=== PATIENT | female | born 1950 | race Caucasian/White ===

== ENCOUNTER → 2017-04-26 | Outpatient (CLI) | payer OTHER, MEDICARE ==
[~2017-04-26] MED LIST: AMITRIPTYLINE H75 M1 PO; ARICEPT 5 MG TAB5 MG PO; BLACK COHOSH200 MG PO; CELEXA20 MG PO; CIPROFLOXACIN500 M3 PO; CLEOCIN HCL150 MG PO; CLIMARA PRO PA1 EACH TRANSDERM; CLONAZEPAM 0.50.5 M1 PO; CYCLOBENZAPRINE10 MG PO; DONEPEZIL HCL 55 M1 PO; ESTRACE1 MG PO; FLAGYL500 MG PO; FLEXERIL PO; GABAPENTIN 100100 MG PO; HYDROCODON-ACE1 EAC7 PO; HYDROCODONE-AP1 EAC6 PO; IBUPROFEN 400400 M1 PO; IBUPROFEN 800800 M1 PO; LIDOCAINE1 EACH TRANSDERM; LIDODERM 5%1 PATCH TOP; LIPITOR 20 MG T20 M1 PO; OMEPRAZOLE 20 M20 MG PO; PRILOSEC 20 MG20 MG PO; TRAMADOL 50 MG50 MG PO; VICODIN 5-5001 EACH PO; VITAMIN B-12500 MCG PO
== END ==
LOC: M.RAD 10:06
DX: M41.85 Other forms of scoliosis, thoracolumbar region (principal); M47.896 Other spondylosis, lumbar region

== ENCOUNTER → 2017-04-26 | Outpatient (CLI) | payer OTHER, MEDICARE ==
--- NOTE | 2017-04-27 09:02 | PAINCON ---
[place] [address] PAIN MANAGEMENT CONSULTATION Name: VERONIKA HARTLEY [id number] Admission: 04/26/17 Attend Phys: Rafael Basurto DO Discharge: Date of : 51 Report #: [id number] THIS REPORT FOR: //name// CC: Chery Basurto DATE OF SERVICE: 04/26/2017 REFERRING PHYSICIAN: Chery Sutherland MD CHIEF COMPLAINT: Neck pain and chronic left back pain. HISTORY OF PRESENT ILLNESS: As you know, the patient is a 67-year-old unfortunate female referred to our service by Dr. Sutherland for evaluation and possible cervical epidural injections. She also complains of chronic low back pain for which she wishes further evaluation. She returns today in followup visit requesting to undergo next in the series of cervical epidural injections reporting pain score 9-1/2/10. She reported near 100% improvement in overall pain with previous cervical epidural injection, which addressed her neck pain, but did not provide much in the way of back coverage. She indicates pain is exacerbated with activities, cold temperature, sitting for long periods of time, prolonged sitting, standing, lifting and bending. She returns today in followup visit for further evaluation of her chronic low back pain and to begin the process of preauthorization for the next in the series of cervical epidural injections for which she received excellent benefit. ALLERGIES: PENICILLIN and NALBUPHINE. CURRENT MEDICATIONS: Amitriptyline 150 mg p.o. daily, atorvastatin 20 mg per day, cyclobenzaprine 10 mg every 8 hours p.r.n., estradiol 1 mg per day, gabapentin 100 mg 3 times a day, ibuprofen 400 mg 3 times a day, omeprazole 20 mg once a day, and tramadol 50 mg twice a day. SOCIAL HISTORY: The patient denies current tobacco use, she quit 3 years ago. Denies IV or illicit drug use. She is retired. She is accompanied by her who again is providing the history. IMAGING: No new imaging available. PHYSICAL EXAMINATION: VITAL SIGNS: Blood pressure 134/74, pulse 81, respiratory rate 16 and unlabored, the patient is 98% on room air, temperature 96.9 degrees Fahrenheit, height 5 feet 7 inches tall, weight 162.2 pounds, and BMI calculated 25.6. GENERAL: Well-developed, well-nourished, well-hydrated, scoliotic, slightly kyphotic 67-year-old female who appears her stated age, [place] [address] PAIN MANAGEMENT CONSULTATION Name: VERONIKA HARTLEY Room: [facility]#: [id number] Admission: 04/26/17 Attend Phys: Rafael Basurto DO Discharge: Date of : 51 Report #: [id number] score today 04/06/09. HEENT: Normocephalic, atraumatic. Pupils are equal, round, and reactive to light. Extraocular muscles are intact. Sclerae are nonicteric without injection. EXTREMITIES: Show no clubbing, no cyanosis, and no edema. MUSCULOSKELETAL: Upper extremity strength is symmetrical 5/5, she is intact to light touch from C5-T1 dermatomes. Cervical provocation testing is once again met with moderate restriction of motion, pain is elicited with maneuvers. Spurling's test is equivocal. She does have palpatory tenderness over the paraspinal musculature of the cervical region as well as the mid thoracic, lower thoracic and upper lumbar area. There is noted scoliotic curvature of the thoracolumbar region. Also, noted kyphosis of the thoracic spine. Lower extremity strength is symmetrical 5/5, intact to light touch from L1 through S2 dermatomes. Muscle bulk and tone equal and symmetrical. ASSESSMENT: 1. Chronic neck pain. 2. Cervical degeneration. 3. Cervical spondylosis. 4. Chronic thoracic and lumbar pain. 5. Scoliosis. 6. Myofascial pain. 7. Chronic intractable pain. PLAN: 1. The patient returns today in followup visit having received excellent benefit with previous cervical epidural injection. She returns today in followup visit with recurrent neck pain and continued back pain. She has requested to undergo the next in a series of cervical epidural injections to address ongoing neck issues. This is the major pain generator the patient is experiencing of late. The patient was advised that third green party payer restrictions require the authorization be obtained before we can undergo the next in the series. The patient did receive excellent benefit lasting for months, I do feel this is an appropriate treatment for the patient. I will begin the authorization process immediately, contact the patient once this authorization has been obtained for her to undergo next in the series of cervical epidural injections. The patient will be contacted by phone once we have the authorization to return to undergo cervical epidural injection under fluoroscopic guidance. The patient and I as well as her had a long discussion about chronic low back pain and thoracic pain. It does appear the patient is suffering from mainly myofascial issues secondary to her scoliosis. I believe imaging would be beneficial to help determine the severity of the scoliosis, so that we can then begin discussion of potential surgical options. We will start the patient off with x-ray imaging of the thoracolumbar area, she [place] [address] PAIN MANAGEMENT CONSULTATION Name: VERONIKA HARTLEY Room: [facility]#: [id number] Admission: 04/26/17 Attend Phys: Rafael Basurto DO Discharge: Date of : 51 Report #: [id number] today, we will review the findings once they are available and discuss whether or not we need to move forward with interventional treatment or recommendations of surgical options. 2. No medication changes were made at today's visit. The patient will continue current medical therapy as previously prescribed. 3. We will see the patient back in followup visit once we have achieved precertification for the patient to undergo the second in series of cervical epidural injections. <ELECTRONICALLY SIGNED> By: Rafael Basurto DO 04/27/17 0902 [id number] [id number] Basurto DO /nt
== END ==
LOC: M.PC 01:18
DX: M47.892 Other spondylosis, cervical region (principal); M50.30 Other cervical disc degeneration, unspecified cervical region; M41.85 Other forms of scoliosis, thoracolumbar region; G89.29 Other chronic pain; M54.6 Pain in thoracic spine; M79.1 Myalgia; Z87.891 Personal history of nicotine dependence

== ENCOUNTER → 2017-05-03 | Outpatient (CLI) | payer OTHER, MEDICARE ==
--- NOTE | 2017-05-05 09:00 | PAINCON ---
[place] [address] PAIN MANAGEMENT CONSULTATION Name: VERONIKA HARTLEY [facility] [id number] Admission: 05/03/17 Attend Phys: Rafael Basurto DO Discharge: Date of : 51 Report #: [id number] THIS REPORT FOR: //name// CC: Chery Basurto DATE OF SERVICE: 05/03/2017 REFERRING PHYSICIAN: Chery Sutherland M.D. CHIEF COMPLAINT: Neck pain, chronic low back pain, left-sided. HISTORY OF PRESENT ILLNESS: As you know, the patient is a 67-year-old unfortunate female referred to our clinic by Dr. Sutherland for evaluation for possible cervical epidural injections. The patient was seen last week for preauthorization for the second series of cervical epidural injections. At that time, we did set the patient for x-ray imaging of the lumbar spine, and she is continuing to experience lumbar symptoms secondary to her severe scoliosis. She returns today with pain level of 7-8/10 to undergo the next in the series of cervical epidural injections and discussed the findings on x-ray imaging. ALLERGIES: PENICILLIN, NALBUPHINE. CURRENT MEDICATIONS: Amitriptyline 150 mg p.o. at bedtime, atorvastatin 20 mg per day, cyclobenzaprine 10 mg every 3 hours, estradiol 1 mg per day, gabapentin 100 mg 3 times a day, ibuprofen 400 mg 3 times a day, omeprazole 20 mg per day, tramadol 50 mg twice a day. SOCIAL HISTORY: The patient denies current tobacco use, she quit 3 years ago. Denies IV or illicit drug use. Denies any chronic alcohol use. She is retired. She is accompanied by her who is providing the majority of history again today. IMAGING: X-ray of the lumbar spine was obtained. Findings show scoliotic curvature and arthritic changes as well as degenerative changes within the thoracolumbar area. No subluxations and no fractures noted. PHYSICAL EXAMINATION: VITAL SIGNS: Blood pressure 144/87, pulse 86, respiratory rate 16, unlabored. The patient is 97% on room air, current temperature 96.7 degrees Fahrenheit. Height 5 feet 8 inches tall, weight 165 pounds, BMI calculated 25. GENERAL: Well-developed, well-nourished, well-hydrated 67-year-old female, appears older than stated age, placing pain score today 7-8/10. HEENT: Normocephalic, atraumatic. Pupils equal, round, reactive to light. EXTREMITIES: Show no clubbing, no cyanosis, [place] [address] PAIN MANAGEMENT CONSULTATION Name: VERONIKA HARTLEY Obi Room: [facility]#: [id number] Admission: 05/03/17 Attend Phys: Rafael Basurto DO Discharge: Date of : 51 Report #: [id number] MUSCULOSKELETAL: Upper extremity strength remains symmetrical 5/5, muscle bulk and tone equal and symmetrical in upper extremities, intact to light touch from C5-T1 dermatomes. Cervical provocation testing is met with moderate restriction of motion secondary to pain. Spurling's test is equivocal. There is palpatory tenderness over the paraspinal musculature of lower lumbar spine and lower thoracic area on the left compared to the right. ASSESSMENT: 1. Cervical radiculopathy. 2. Chronic neck pain. 3. Cervical spondylosis with radicular symptoms. 4. Scoliosis. 5. Degenerative changes of the lumbar spine. 6. Myofascial pain. 7. Chronic intractable pain. PLAN: 1. The patient returns today in followup visit where we have reviewed her x-ray imaging in its entirety. It does appear the patient is suffering from some scoliotic curvature and myofascial symptoms secondary to that curvature. It does not appear the patient has suffered from any subluxations or fractures of the thoracolumbar area. The patient does have some minor radicular component to her symptoms radiating down the left leg, and I recommend the possibility of having the patient undergo an epidural injection in the area to determine if this would be able to improve the patient's ongoing low back symptoms. The patient was advised that third green party payer restrictions require that authorization be obtained. We would have only one injection remaining in this 6 months to address the low back symptoms as today we will complete the second in series of epidural injections, and the patient is only allowed 3 epidural injections total per 6 months. The patient understands and does wish to address her low back and the left lower extremity symptoms. If at all possible, we will begin the prior authorization process, have the patient return in followup visit to undergo this procedure in about 3 weeks. We will attempt the authorization process over the next couple of weeks. 2. The patient has been advised the risks and benefits of a cervical epidural injection. These risks include, but are not necessarily limited to bleeding, bruising, infection, worsening pain, no relief of pain, also risk of temporary or permanent muscle weakness, temporary or permanent nerve damage, possible paralysis and . The patient states understood and wished to proceed. 3. No medication changes were made at today's visit. The patient to continue current medical therapy as previously prescribed. [place] [address] PAIN MANAGEMENT CONSULTATION Name: VERONIKA HARTLEY Room: [facility] [place]#: [id number] Admission: 05/03/17 Attend Phys: Rafael Basurto DO Discharge: Date of : 51 Report #: [id number] 4. We will see the patient back in followup visit on an as-needed basis for the possible lumbar epidural injection addressed above. <ELECTRONICALLY SIGNED> By: Rafael Basurto DO 05/05/1700 0748Rafael Basurto DO /nt
--- NOTE | 2017-05-05 09:00 | PROC ---
[address] [address] PROCEDURE REPORT Name: VERONIKA HARTLEY [id number] Admission: 05/03/17 Attend Phys: Rafael Basurto DO Discharge: Date of : 51 Report #: [id number] THIS REPORT FOR: //name// CC: Chery Basurto DATE OF SERVICE: 05/03/2017 PROCEDURE NOTE DESCRIPTION OF PROCEDURE: C7-T1 cervical epidural steroid injection under fluoroscopic guidance. After obtaining written consent, the patient was taken back to fluoroscopy suite, placed in a prone position with separate pillows under chest and forehead to decrease cervical lordosis. The cervical intervertebral spaces were identified by AP fluoroscopy. Skin and subcutaneous tissue overlying target site of injection was anesthetized with 3 mL of 1% lidocaine. A 20-gauge 3-1/2 inch Tuohy needle advanced under fluoroscopic guidance towards the epidural space using midline approach. Epidural space identified using loss of resistance to air technique. After negative aspiration for heme or cerebrospinal fluid, 1 mL of Omnipaque was injected. A cervical epidurogram was confirmed using both AP and oblique fluoroscopy. After negative aspiration for heme or cerebrospinal fluid, 5 mL of a solution containing 2 mL 40 mg per mL, 80 mg total triamcinolone, 3 mL lidocaine 1% injected slowly. Needle retracted longterm, flushed with 1 mL of 1% lidocaine and removed. Sterile bandage placed over injection site. No new motor deficits present in the upper extremity following procedure. The patient tolerated procedure well, carefully escorted to recovery room in stable condition. No apparent complications. After meeting discharge criteria, the patient discharged home. <ELECTRONICALLY SIGNED> By: Rafael Basurto DO 05/05/1700 0714 0749Rafael Basurto DO /nt
== END | disposition home or self-care (01) ==
LOC: M.PC 00:57
DX: M47.22 Other spondylosis with radiculopathy, cervical region (principal); M79.1 Myalgia; G89.29 Other chronic pain; Z87.891 Personal history of nicotine dependence; Z88.0 Allergy status to penicillin; Z88.8 Allergy status to other drugs, medicaments and biological substances

== ENCOUNTER → 2017-06-15 | Outpatient (CLI) | payer OTHER, MEDICARE ==
--- NOTE | 2017-06-16 14:44 | PAINCON ---
[address] [address] PAIN MANAGEMENT CONSULTATION Name: NAEEMVERONIKA L Room: [facility]#: [id number] Admission: 06/15/17 Attend Phys: Marisa Kraus MD Discharge: Date of : 51 Report #: [id number] THIS REPORT FOR: //name// CC: Chery Kraus DATE OF SERVICE: 06/15/2017 HISTORY OF PRESENT ILLNESS: The patient is a 67-year-old female who has been followed in the pain clinic because of cervical radiculopathy with chronic neck pain as well as some low back pain and discomfort. She has significant scoliosis. She underwent a cervical epidural steroid injection with Dr. Rafael Basurto. This is my first time visiting with the patient. She gleaned benefit from that. She returns today for evaluation of left-sided chest wall/left loin pain. Her states that she has had this pain for about 41 years. She noted improvement in the neck discomfort after the cervical epidural steroid injection. Now, she would like to have the lower back/left loin pain addressed. Again, this pain has been going on for about 40 years. She denies any shingles in this area. Denies any trauma. States that she has significant scoliosis and feels that is a portion of the pain and discomfort that she is having. She has tried a number of medications, which have included tramadol, which has improved the pain. She notes that the pain sometimes become so problematic that she might spend 1-2 days in bed because of this discomfort. She has tried hydrocodone, but did not feel that that was significantly beneficial. She and her have discussed it and they would like to proceed with an epidural steroid injection in the lower back area to notice efficacy and decreasing the left loin pain, which radiates from her back into the lateral portions of her left loin. She states that the pain is persistent and that it is there every day. She rates it as a 5/10 at this juncture. Notes that the pain can be worsened by standing, walking, times of changing temperature, changes in activity, lifting and bending can be problematic. She has tried a TENS unit. ALLERGIES: PENICILLIN. CURRENT MEDICATIONS: Amitriptyline 75 mg, a total of 150 mg daily, Lipitor 20 mg, Flexeril 10 mg q.8 hours p.r.n. spasms, Estrace 1 mg daily, ibuprofen 400 mg t.i.d., omeprazole 20 mg daily, tramadol 50 mg b.i.d., and donepezil 5 mg daily. The patient has used gabapentin 100 mg t.i.d., but no longer is using this medication. She has used a Lidoderm patch in the past. PAST MEDICAL HISTORY: 1. Hiatal hernia. 2. Emotional problems. 3. Scoliosis. 4. Deg[place] [address] PAIN MANAGEMENT CONSULTATION Name: VERONIKA HARTLEY Room: [facility]#: [id number] Admission: 06/15/17 Attend Phys: Marisa Kraus MD Discharge: Date of : 51 Report #: [id number] 5. Osteoarthritis. 6. Hyperlipidemia. 7. GERD. PAST SURGICAL HISTORY: Hysterectomy. SOCIAL HISTORY: She retired 32 years ago. Her provides a lion's share of her medical history. REVIEW OF SYSTEMS: Positive for fatigue, weakness, wears glasses, hearing loss with tenderness, shortness of breath with activities, memory loss with confusion. PAIN ASSESSMENT: Indicates, 1. History of osteoarthritis with significant scoliosis of her back. 2. Height 5 feet 8 inches, weight 167 pounds, BMI is 25. Vital Signs: Blood pressure 169/90, heart rate 83, respiratory rate 16, room air saturation 99%, and temperature 98.3. 3. Pain intensity 5/10. 4. Fall risk. The patient has not fallen. 5. The patient is not on blood thinner. 6. Hypertension. The patient has not been treated for hypertension. 7. Opioid therapy greater than 6 weeks. The patient is using trazodone 50 mg. 8. Risk assessment tool. 9. Pain impact score 42/70 indicating moderate interference with daily activities secondary to pain. 10. Tobacco use. The patient smoked cigarettes about 45 years, stopped 3-1/2 years ago. 11. Alcohol: Denies use of alcoholic beverages, maybe once per month. PHYSICAL EXAMINATION: GENERAL: The patient is a white female. Appearance, appears her stated age. Orientation: The patient is alert and oriented. Affect is somewhat flat. Her does most of the talking and provides most of medical history. HEENT: Normocephalic, atraumatic. Extraocular eye muscles intact. Hearing appears within normal limits. No complaints of sinus problems on today's visit. Affect seems appropriate with her providing most information. NECK: Without adenopathy. The patient has noted some improvement in the cervical pain, now that the patient has undergone 2 epidural steroid injections in her neck. She feels that this is better. LUNGS: Clear to auscultation. HEART: Regular rate. ABDOMEN: Nontender. MUSCULOSKELETAL: The patient has significant scoliosis of the back. The patient has pain and discomfort in the left loin area. Palpation in this area causes pain and discomfort. Muscle strength appears to be 5/5 [place] [address] PAIN MANAGEMENT CONSULTATION Name: VERONIKA HARTLEY [facility] [id number] Admission: 06/15/17 Attend Phys: Marisa Kraus MD Discharge: Date of : 51 Report #: [id number] muscle groups of the lower extremity. She is not complaining of pain and discomfort radiating down into the legs, but does have some pain and discomfort with walking of once fingers over the mid axillary line in the left lateral loin the area. IMPRESSION: 1. Chronic left loin pain. 2. Cervical radiculopathy. 3. Cervical spondylosis. 4. Intermittent cervical radicular symptoms. 5. Chronic intractable pain, left lower side. RECOMMENDATIONS: We discussed treatment options with the patient. The patient and her feel that the cervical epidural steroid injections provided by [facility] were helpful. She continues to have pain and discomfort in the left lower loin area. This is pain which has been problematic for about the last 40 years. She feels that today she would like to undergo an epidural steroid injected and note its efficacy and decrease in the pain and discomfort which she is experiencing in the left lateral loin area. She rates the pain as an 8/10. It increases when she is sitting. She would like to proceed with treatment. We discussed treatment options with the patient and her . Risks and benefits of an epidural steroid injection were again reviewed. They include but are not limited to infection, increased muscle soreness, headaches, bleeding, worsening of pain, spinal headache, improvement in pain conditions or no improvement in pain condition. She elects to proceed. PROCEDURE NOTE: The patient was taken to the fluoroscopy room. She was assisted in moving from the chair to the examination table. A pillow was placed under her abdomen/chest area to bolster and get her in the best position. Fluoroscopy was used in the anterior, posterior mold. At T12-L1, this area was sterilely prepped with Betadine. A 0.25% bupivacaine was infiltrated. A 17-gauge Tuohy with loss of resistance technique was used to gain access to the epidural space. There was no CSF, heme or paresthesia. Total of 80 mg Depo-Medrol, 40 mg triamcinolone and 2 mL of 0.25% bupivacaine was injected. The patient's pain decreased from 8-0-1 at the time of discharge. She remained in the pain clinic for an appropriate amount of time. She will call us if she has any problems or concerns. We would like to thank you for letting us participate in her care. We hope she continues to improve. <ELECTRONICALLY SIGNED> By: Marisa Kraus MD 06/16/17 1444 1515 1915N. Gabe Kraus MD /nt
== END | disposition home or self-care (01) ==
LOC: M.PC 02:45
DX: M47.22 Other spondylosis with radiculopathy, cervical region (principal); G89.29 Other chronic pain; F11.20 Opioid dependence, uncomplicated; I10 Essential (primary) hypertension; M19.90 Unspecified osteoarthritis, unspecified site; R06.02 Shortness of breath; Z90.710 Acquired absence of both cervix and uterus; E78.5 Hyperlipidemia, unspecified; K21.9 Gastro-esophageal reflux disease without esophagitis; M41.9 Scoliosis, unspecified; Z88.0 Allergy status to penicillin; Z79.899 Other long term (current) drug therapy

== ENCOUNTER → 2017-07-13 | Outpatient (CLI) | payer OTHER, MEDICARE ==
--- NOTE | 2017-08-04 08:18 | PAINCON ---
[address] [address] PAIN MANAGEMENT CONSULTATION Name: NAEEMVERONIKA L [facility] [id number] Admission: 07/13/17 Attend Phys: Marisa Kraus MD Discharge: Date of : 51 Report #: [id number] THIS REPORT FOR: //name// CC: Chery Kraus DATE OF SERVICE: 07/13/2017 FOLLOWUP COMPLAINT: The pain was better for about 4 weeks. The patient fell out of bed 5-6 days ago. FOLLOWUP HISTORY: The patient is a 67-year-old female, who has been seen in the pain clinic because of chronic pain. She has significant scoliosis. She underwent a lumbar epidural steroid injection at the last visit. She noted significant improvement. Pain decreased for about the last 4 weeks. The patient recently fell out of bed about 5-6 days ago. She has noted some increased pain and discomfort. She hit her mouth and lip. Possible damage to a tooth was noted. She is going to see a dentist for a followup. Her feels that this past epidural steroid injection was beneficial and helped greater than a number of epidural steroid injections that she has had in the past. She has had an increase activity. She has been able to engage in other activities with less discomfort. Overall, her pain has increased to an 8/10 at this juncture. She notes that the pain can be worsened by prolonged sitting and standing. Walking stairs can be problematic as well. Using TENS unit, stretching and rest in conjunction with heat have been helpful. She and her feels that another epidural steroid injection would be beneficial and they would like to proceed with one in the future. ALLERGIES: PENICILLIN. CURRENT MEDICATIONS: Lipitor 20 mg daily, Flexeril 10 mg at bedtime to help with back spasms, donepezil 5 mg, ibuprofen 400 mg 1 p.o. t.i.d. p.r.n., omeprazole 20 mg daily, Ultram 50 mg p.r.n., citalopram, B12, B2 daily, Aricept one-half tablet daily. Medications which have been stopped, esterase 1 mg, amitriptyline 75 mg. The patient is being weaned off. PAIN ASSESSMENT: 1. History of osteoarthritis with significant scoliosis of her back. 2. Height 5 feet 8 inches, weight 161 pounds, BMI 25.2. 3. VITAL SIGNS: Blood pressure 129/72, heart rate 88, respiratory rate 16, room air saturation 98%, temperature 98. 4. Pain intensity 11/12. 5. Fall risk. The patient fell about 5 days ago out of bed. 6. Blood thinner. The patient is not on a blood thinning medication. 7. Hypertension. The patient has not been [place] [address] PAIN MANAGEMENT CONSULTATION Name: VERONIKA HARTLEY Room: [facility]#: [id number] Admission: 07/13/17 Attend Phys: Marisa Kraus MD Discharge: Date of : 51 Report #: [id number] 8. Oral therapy greater than 6 weeks. The patient is taking tramadol 50 mg b.i.d. p.r.n. 9. Risk assessment tool. 10. Pain impact score 42/70 indicating moderate interference with activities of daily living secondary to pain. 11. Tobacco use. The patient smokes cigarettes about 45 years ago, stopped 3-1/2 years ago. 12. Alcohol. The patient denies use of alcoholic beverages on a regular basis. Rarely monthly. PHYSICAL EXAMINATION: GENERAL: The patient is a well-developed white female. She appears her stated age. She appears to be alert and oriented x 3. Affect is somewhat flat. Her does most of the talking and provides most of the medical history. HEENT: Normocephalic, atraumatic. Extraocular eye muscles intact. Sclerae is nonicteric. Hearing is within normal limits. NECK: Without adenopathy. Good range of motion. The patient has had cervical pain in the past. Not complaining of much discomfort at this juncture. HEART: Regular rate, normal S1, S2. LUNGS: Clear to auscultation without rub, crackles or rhonchi. ABDOMEN: Nontender. MUSCULOSKELETAL: The patient has a significant scoliosis presentation on her back. The patient has pain and discomfort in the left loin area. Palpation in this area does cause some reproduction of discomfort. Muscle strength appears to be 5/5 for the major muscle groups in the lower extremity. She is not complaining of pain in the upper extremities. ASSESSMENT: 1. Chronic left loin pain. 2. History of cervical radiculopathy. 3. Cervical radiculopathy. 4. Intermittent cervical radicular symptoms. 5. Chronic intractable pain in the left lower side secondary to scoliosis. RECOMMENDATIONS: We discussed treatment options with the patient and his . It appears that the epidural steroid injection which she received at the last visit was quite beneficial. Had 3-4 weeks of significant improvement. Noted some worsening of her pain after a fall from the bed. At this juncture, she will return to the pain clinic and will undergo another epidural steroid injection in the thoracic area. Again, the risks and benefits were reviewed with the family. They will return at which time an epidural steroid injection will be again placed at the T12-L1 interspace with a hope of improving the [facility] [address] [place] [address] PAIN MANAGEMENT CONSULTATION Name: HARTLEYVERONIKA L Room: [facility]#: [id number] Admission: 07/13/17 Attend Phys: Marisa Kraus MD Discharge: Date of : 51 Report #: [id number] patient's pain and comfort level. We would like to thank you for letting us participate in her care. We hope she continues to improve. <ELECTRONICALLY SIGNED> By: Marisa Kraus MD 08/04/17 0818 1717 1732N. Gabe Kraus MD /nt
== END ==
LOC: M.PC 03:02
DX: I10 Essential (primary) hypertension (principal); M54.12 Radiculopathy, cervical region; G89.29 Other chronic pain; M47.9 Spondylosis, unspecified; Z91.81 History of falling

== ENCOUNTER 2017-07-17 07:10 | Emergency (ER) | payer OTHER, MEDICARE ==
[~2017-07-17] VITALS: Ht 172.7 cm; Wt 76.2 kg
[~2017-07-17 07:10] MED LIST changes: -CLEOCIN HCL150 MG PO; -HYDROCODONE-AP1 EAC6 PO; -LIDOCAINE1 EACH TRANSDERM
[2017-07-17] MEDS ORDERED: CLEOCIN HCL150 MG PO (07:31)
[2017-07-17] MEDS ORDERED: HYDROCODONE-AP1 EAC6 PO (07:32)
[2017-07-17] MEDS ORDERED: LIDOCAINE1 EACH TRANSDERM (07:32)
[2017-07-17 08:25] LABS: ABSOLUTE BASOPHILS 0.1 thou/uL (0.0-0.2); ABSOLUTE LYMPHOCYTES 1.8 thou/uL (0.8-5.3); ABSOLUTE MONOCYTES 0.5 thou/uL (0.0-1.2); ABSOLUTE NEUTROPHILS 3.6 thou/uL (1.6-8.1); BASOPHILS 1.1 %; EOSINOPHILS 0.6 %; HEMATOCRIT 36.8 % (37.0-47.0); HEMOGLOBIN 12.6 gm/dL (12.0-15.0); LYMPHOCYTES 29.9 %; MCH 33.2 pg (26.0-34.0); MCHC 34.1 g/dL (28.0-37.0); MCV 97.3 fL (80.0-100.0); MONOCYTES 7.7 %; MPV 7.6 fl. (7.2-11.1); NUCLEATED RBCS 0 /100WBC; PLATELET COUNT* 258 thou/uL (150-400); POLYS 60.7 %; RBC 3.78 mil/uL (4.20-5.00)
[2017-07-17 08:32] LABS: CALCIUM 9.1 mg/dL (8.5-10.1); CREATININE 0.8 mg/dL (0.6-1.3); POTASSIUM 3.7 mmol/L (3.5-5.1)
[2017-07-17 08:37] LABS: ALBUMIN 3.3 g/dL (3.4-5.0); TOTAL BILIRUBIN 0.4 mg/dL (<0.1-1.0); TOTAL PROTEIN 6.5 g/dL (6.4-8.2)
[2017-07-17 09:28] LABS: URINE BILIRUBIN NEGATIVE (Negative); URINE BLOOD NEGATIVE (Negative); URINE CLARITY CLEAR; URINE COLOR YELLOW; URINE GLUCOSE-RANDOM NEGATIVE (Negative); URINE KETONES NEGATIVE (Negative); URINE LEUKOCYTES-REFLEX NEGATIVE (Negative); URINE NITRITE-REFLEX NEGATIVE (Negative); URINE PROTEIN NEGATIVE (Negative); URINE SPECIFIC GRAVITY <= 1.005 (1.005-1.030); URINE UROBILINOGEN 0.2 E.U./dl (0.2-1.0)
[2017-07-17 13:05] VITALS: BP 141/84
[2018-01-06] MEDS ORDERED: HYDROCODON-ACE1 EAC7 PO (11:13)
== END 2017-07-17 13:05 | disposition home or self-care (01) ==
LOC: M.ERS 07:10
PROVIDERS: Personal Emergency Response Attendant
DX: R51 Headache (principal); K21.9 Gastro-esophageal reflux disease without esophagitis; F03.90 Unspecified dementia, unspecified severity, without behavioral disturbance, psychotic disturbance, mood disturbance, and anxiety; Z88.0 Allergy status to penicillin; Z88.8 Allergy status to other drugs, medicaments and biological substances; Z77.22 Contact with and (suspected) exposure to environmental tobacco smoke (acute) (chronic); Z90.710 Acquired absence of both cervix and uterus

== ENCOUNTER → 2017-07-29 | Outpatient (CLI) | payer OTHER, MEDICARE ==
[~2017-07-29] MED LIST changes: +CLEOCIN HCL150 MG PO; +HYDROCODONE-AP1 EAC6 PO; +LIDOCAINE1 EACH TRANSDERM
--- NOTE | 2017-08-04 08:18 | PAINCON ---
[address] [address] PAIN MANAGEMENT CONSULTATION Name: NAEEMVERONIKA L [id number] Admission: 07/29/17 Attend Phys: Marisa Kraus MD Discharge: Date of : 51 Report #: [id number] THIS REPORT FOR: //name// CC: Chery Kraus DATE OF SERVICE: 07/29/2017 FOLLOWUP COMPLAINT: Here for another injection before I go to [place]. FOLLOWUP HISTORY: The patient is a 67-year-old female who has been seen in the pain clinic because of chronic pain. She has had some problems with cervical pain as well as pain in the low back area. As you recall, she has significant scoliosis in her mid-thoracic area. She is having pain and discomfort, which is radiating down into the left wall area. States that it feels like there is some spasms involving the left flank area. She underwent an epidural steroid injection in the thoracic area and felt that this had been significantly beneficial. She rates her pain today as a 7/10. Feels that most of the pain involves the left side. The patient is contemplating leaving to go to [place] tomorrow. Denies any bowel or bladder dysfunction since the last injection. Notes that her pain continues to be problematic when standing, walking and changes in the weather and barometric pressure with activity such as lifting and bending makes all still remain problematic. ALLERGIES: PENICILLIN. MEDICATIONS: Amitriptyline 75 mg total of 150 mg per day, Lipitor 20 mg, Flexeril 10 mg q.8h. p.r.n. spasm, Estrace 1 mg daily, ibuprofen 400 mg t.i.d., omeprazole 20 mg daily, tramadol 50 mg b.i.d., donepezil 5 mg daily. Gabapentin 100 mg t.i.d. has been used in the past. The patient is also use Lidoderm patches in the past. PAIN CLINIC ASSESSMENT: 1. History of osteoarthritis. The patient has significant arthritic changes in her thoracic and lumbar spine. 2. Height 5 feet 8 inches, weight 160 pounds, BMI 24. 3. Vital Signs: Blood pressure 132/84, heart rate 81, respiratory rate 16, room air saturation 97%, temperature 97.8. Pain intensity /10. 4. Fall risk. The patient has not fallen in the last 3 months. IMPRESSION: 1. Blood thinner. The patient is not on a blood thinner. 2. Hypertension. The patient has not been treated for hypertension. 3. Opioid therapy greater than 6 weeks. The patient is using trazodone. 4. [place] [address] PAIN MANAGEMENT CONSULTATION Name: VERONIKA HARTLEY Obi Room: [facility]#: [id number] Admission: 07/29/17 Attend Phys: Marisa Kraus MD Discharge: Date of : 51 Report #: [id number] 5. Functional assessment tool. 6. Pain impact score 42/70 indicating moderate interference with activities of daily living. 7. Tobacco use. The patient smokes cigarettes about 45 years ago, stopped 3-1/2 years ago. 8. Alcohol: The patient denies use of alcoholic beverages on a regular basis. PHYSICAL EXAMINATION: GENERAL: The patient is a white female. She appears her stated age. She is alert and oriented. She is speaking to his aunt, and her speech is fluent. HEENT: Normocephalic, atraumatic. Extraocular eye muscles intact. Sclerae nonicteric Hearing is within normal limits. Mucous membranes are moist. NECK: Without adenopathy. The patient has noted some improvement in cervical pain since she has undergone epidural steroid injections. LUNGS: Clear to auscultation. HEART: Regular rate. S1, S2. ABDOMEN: Nontender. MUSCULOSKELETAL: The patient has significant scoliosis in the upper back with leaning toward the right. The patient has pain and discomfort in the left loin area. Palpation in this area causes some reproduction of her discomfort. Muscle strength appears to be 5/5 for the major muscle groups in the lower extremities. She has pain and discomfort radiating down into her legs. Has had improvement after the last thoracic/lumbar epidural steroid injection. IMPRESSION: 1. Chronic left loin pain. 2. Cervical radiculopathy. 3. Lumbar radicular pain with significant scoliosis. 4. Cervical spondylosis. 5. Mid and cervical radicular symptoms. 6. Chronic intractable pain involving her low back area. RECOMMENDATIONS: We discussed treatment options with the patient. She had undergone epidural steroid injection at the last visit. She and her states this has been a significant improvement. There were no complications. She is planning on going to [place]. She would like to undergo an epidural steroid injection today. Risks and benefits of an epidural steroid injection were again reviewed with the patient and reviewed with the patient. They include but are not limited to infection, increased muscle soreness, headache, bleeding, nerve damage, paresis and the patient elects to proceed. PROCEDURE NOTE: The patient was placed in the prone position. Fluoroscopy was used to identify the T12-L1 interspace. This area had been sterilely prepped with Betadine and infiltrated with 0.25% bupivacaine. Total of 80 mg Depo-Medrol, 40 mg triamcinolone and 2 mL of 0.25% bupivacaine was injected. The patient tolerated the procedure well. There [place] [address] PAIN MANAGEMENT CONSULTATION Name: VERONIKA HARTLEY Room: [facility]#: [id number] Admission: 07/29/17 Attend Phys: Marisa Kraus MD Discharge: Date of : 51 Report #: [id number] remained in the pain clinic for an appropriate amount of time. Pain decreased from 7-4 at the time of discharge. She will call us if she has any problems with her medications. We would like to thank you for letting us participate in her care. Hopefully, she has a good time in [place]. <ELECTRONICALLY SIGNED> By: Marisa Kraus MD 08/04/17 0818 1258 195N. Gabe Kraus MD /[facility]
== END | disposition home or self-care (01) ==
LOC: M.PC 01:58
DX: M47.22 Other spondylosis with radiculopathy, cervical region (principal); M41.86 Other forms of scoliosis, lumbar region; G89.29 Other chronic pain; Z88.0 Allergy status to penicillin; Z88.8 Allergy status to other drugs, medicaments and biological substances; Z79.899 Other long term (current) drug therapy; Z79.891 Long term (current) use of opiate analgesic; Z98.890 Other specified postprocedural states

== ENCOUNTER → 2017-11-18 | Outpatient (CLI) | payer OTHER, MEDICARE ==
--- NOTE | 2017-11-19 08:37 | PAINCON ---
[address] [address] PAIN MANAGEMENT CONSULTATION Name: VERONIKA HARTLEY [facility] [place]#: [id number] Admission: 11/18/17 Attend Phys: Marisa Kraus MD Discharge: Date of : 51 Report #: [id number] THIS REPORT FOR: //name// CC: Chery Kraus DATE OF SERVICE: 11/18/2017 FOLLOWUP HISTORY: The patient is a 67-year-old female who has been followed in the pain clinic because of chronic pain associated with arthritis. She has cervical radicular problems as well as lumbar radicular problems. She has undergone an epidural steroid injection in the lumbar area at the last visit. She noted that things went quite well. She has had about 3 months of pain relief. The patient and her often go to [place]. They had a good vacation in this area. She has noted some return of pain and discomfort and rates her pain as a 10/10 at this juncture. Overall, they are quite positive regarding the past results. She did get injections in the past and they were less efficacious. Pain involves her right hip area and radiates around the back. Her states that they went to the Emergency Room, she was seen. Nothing significant was found. At this juncture, she would like to undergo another injection. The patient has gleaned greater than 50% improvement for the last 3 months. She has noted a return of her pain and would like to proceed with another injection. ALLERGIES: PENICILLIN. MEDICATIONS: Amitriptyline 75 mg, total of 150 mg daily; Lipitor 20 mg; Flexeril 10 mg q.8 hours p.r.n. spasms; Estrace 1 mg daily; ibuprofen 400 mg t.i.d.; omeprazole 20 mg daily; tramadol 50 mg b.i.d.; donepezil 5 mg; gabapentin 100 mg t.i.d., has been used in the past. The patient has also used Lidoderm patches in the past. PAIN CLINIC ASSESSMENT: 1. History of osteoarthritis. The patient has significant arthritic problem in her thoracic spine as well as in the cervical area. 2. Height 5 feet 8 inches, weight 151 pounds, BMI is 24. 3. VITAL SIGNS: Blood pressure 151/88, heart rate is 99, respiratory rate 16, room air saturation 98%. The patient's pain level 10/10. 4. Fall. The patient has not fallen in the last 3 months. 5. Blood thinner. The patient is not on a blood thinning medication. 6. History of hypertension. The patient has not been treated for hypertension. 7. Opiate therapy greater than 6 weeks. The patient is using tramadol to help curtail her pain. 8. Hypertension. The patient is being treated for hypertension. 9. [place] [address] PAIN MANAGEMENT CONSULTATION Name: VERONIKA HARTLEY Obi Room: [facility]#: [id number] Admission: 11/18/17 Attend Phys: Marisa Kraus MD Discharge: Date of : 51 Report #: [id number] 10. Functional assessment tool. 11. Recreational drug use. The patient denies use of recreational drugs. 12. Tobacco: The patient smokes cigarettes and has smoked for 45 years, stopped about 3-1/2 years ago. 13. Alcohol: The patient denies use of alcoholic beverages on a regular basis. PHYSICAL EXAMINATION: GENERAL: The patient is a well-developed white female. She appears her stated age. She is alert and oriented x 3. She is somewhat slow to respond. Her is present and helps to answer questions. She is alert and totally able to. HEENT: Normocephalic, atraumatic. Extraocular eye muscles intact. Sclerae nonicteric. Hearing is within normal limits. Mucous membranes are moist. NECK: Without adenopathy. The patient has had some improvement in her cervical pain with epidural steroid injection. LUNGS: Clear to auscultation. HEART: Regular rate. S1, S2. ABDOMEN: Nontender. MUSCULOSKELETAL: Without significant kyphosis, lordosis. Patient does have scoliosis. Has some pain that radiates around the right loin area. Muscle strength to the lower extremities is 5/5. Upper extremities 5-/5 for extremities strength. IMPRESSION: 1. Chronic left and some right back pain. 2. History of cervical radiculopathy. 3. Lumbar radiculopathy with significant scoliosis. 4. Cervical spondylosis. 5. Cervical radiculopathy. 6. Chronic intractable pain involving the low back area. RECOMMENDATIONS: We discussed treatment options with the patient and her . The patient received greater than 3 months of pain relief after the last epidural steroid injection. She would like to proceed with another. She has taken lot less pain medications. Her reports that she has taken about 3 or 4 pain pills in the last 3 months as opposed to before that time when she took significantly more. She finds that the injections are helpful. She would like to proceed with another epidural steroid injection. There were no complications in the past. She continues to have pain that is radiating down into her back. The patient will return to the pain clinic for an epidural steroid injection after she has been precertified by her insurance company. Again, she has gleaned significant pain relief from the injections where that she is taking less of the opioid narcotic medications. [place] [address] PAIN MANAGEMENT CONSULTATION Name: VERONIKA HARTLEY Room: [facility]#: [id number] Admission: 11/18/17 Attend Phys: Marisa Kraus MD Discharge: Date of : 51 Report #: [id number] you for letting us participate in her care. When she returns, we will then proceed with an epidural steroid injection. <ELECTRONICALLY SIGNED> By: Marisa Kraus MD 11/19/17 0837 1027 1220N. Gabe Kraus MD /nt
== END ==
LOC: M.PC 04:59
DX: M47.22 Other spondylosis with radiculopathy, cervical region (principal); G89.4 Chronic pain syndrome; M54.5 Low back pain

== ENCOUNTER → 2017-11-25 | Outpatient (CLI) | payer OTHER, MEDICARE ==
--- NOTE | 2017-12-01 16:41 | PAINCON ---
[address] [address] PAIN MANAGEMENT CONSULTATION Name: NAEEMVERONIKA L [id number] Admission: 11/25/17 Attend Phys: Marisa Kraus MD Discharge: Date of : 51 Report #: [id number] THIS REPORT FOR: //name// CC: Chery Kraus DATE OF SERVICE: 11/25/2017 FOLLOWUP COMPLAINT: The pain improved for a number of months, but has started to come back. FOLLOWUP HISTORY: The patient is a 67-year-old female, who has been followed in the pain clinic because of chronic pain and arthritis. She has a significant problem with her back. She has quite a bit of curvature. Scoliosis is present. She has undergone an epidural steroid injection in the upper lumbar area at T12-L1. She has noticed that pain relief was present for about 3 months. She and her went to [place]. They had a great vacation. They did quite a bit of walking and hiking. At this juncture, she has noticed a return of pain and discomfort in her upper back area. She would like to proceed with another injection at this juncture. She had no complications from its performance at the last visit. MEDICATIONS: Amitriptyline 75 mg, a total of 150 mg daily, Lipitor 20 mg, Flexeril 10 mg q.8 hours, Estrace 1 mg, ibuprofen 400 mg, omeprazole 20 mg, tramadol 50 mg b.i.d., donepezil 5 mg, and gabapentin 100 mg t.i.d. The patient has used Lidoderm patches in the past. ALLERGIES: THE PATIENT IS ALLERGIC TO PENICILLIN. PAIN CLINIC ASSESSMENT: 1. History of arthritis: The patient has significant arthritic problems in her thoracic spine as well as in the cervical area. 2. Pain has been rated at 10/10. 3. Fall: The patient has not fallen in the last 3 months. 4. Blood thinner: The patient is not on a blood thinning medication. 5. Opioid therapy greater than 6 weeks. The patient is using tramadol to help control the pain. 6. Hypertension: The patient is being treated for hypertension. 7. Risk assessment tool. 8. Functional assessment tool. 9. Recreational drug use. The patient denies use of recreational drugs. 10. Tobacco: The patient smokes cigarettes for 45 years, stopped 3-1/2 years ago. 11 Alcohol: The patient denies use of alcoholic beverages on a regular basis. PHYSICAL EXAMINATION: [address] [place] [address] PAIN MANAGEMENT CONSULTATION Name: VERONIKA HARTLEY Room: [facility]#: [id number] Admission: 11/25/17 Attend Phys: Marisa Kraus MD Discharge: Date of : 51 Report #: [id number] GENERAL: The patient is a well-developed white female. She appears her stated age. She is alert and oriented x 3. She is somewhat slow in response. She is alert and totally capable of responding. Height is 5 feet 8 inches, weight is 153 pounds, and BMI is 24.4. VITAL SIGNS: Blood pressure is 150/66, heart rate is 76, respiratory rate is 16, room air saturation is 97%, and temperature is 98.3. HEENT: Normocephalic, atraumatic. Extraocular eye muscles intact. Sclerae nonicteric. Mucous membranes are moist. NECK: Without adenopathy. The patient has some improvement in her cervical picture. She has less pain and discomfort from cervical radicular pain. LUNGS: Clear to auscultation. HEART: Regular rate. S1, S2. ABDOMEN: Nontender. MUSCULOSKELETAL: Without significant kyphosis. She does have rightward bending scoliosis. No significant lordosis. She has some pain that radiates around to the right loin area. Strength in her lower extremities is judged to be 5/5. Upper extremity strength is 5/5 as well. IMPRESSION: 1. Chronic left and some right back pain. 2. History of cervical radiculopathy. 3. Lumbar radiculopathy with significant scoliosis. 4. Cervical spondylosis. 5. Cervical radiculopathy. 6. Chronic intractable pain involving the low back area. RECOMMENDATIONS: We have discussed the treatment options with the patient. Risks and benefits of an epidural steroid injection were again reviewed. Possible complication of the procedure, which could include but are not limited to infection, increased muscle soreness, headache, bleeding, worsening of pain, paralysis, no improvement in pain. The patient elects to proceed. PROCEDURE NOTE: The patient was taken to the procedure area. She was assisted in getting on the examination table. She was in the prone position. Fluoroscopy using anterior, posterior as well as lateral viewing were instituted and localizing the T12-L1 interspace. This area had been sterilely prepped with Betadine and infiltrated with 0.25% bupivacaine. A total of 80 mg Depo-Medrol, 40 mg of triamcinolone, and 2 mL of 0.25% bupivacaine was injected. The patient tolerated the procedure well. There were no complications. She remained in the pain clinic for an appropriate amount of time. She will follow up in the future as needed. [address] [place] [address] PAIN MANAGEMENT CONSULTATION Name: LUIS HARTLEYVIKTORIYA Crocker Room: [facility]#: [id number] Admission: 11/25/17 Attend Phys: Marisa Kraus MD Discharge: Date of : 51 Report #: [id number] We would like to thank you for letting us to participate in her care. We hope she continues to improve. <ELECTRONICALLY SIGNED> By: Marisa Kraus MD 12/01/17 1641 1551 0201Marisa Kraus MD /PMT
== END | disposition home or self-care (01) ==
LOC: M.PC 03:24
DX: M50.10 Cervical disc disorder with radiculopathy, unspecified cervical region (principal); M51.16 Intervertebral disc disorders with radiculopathy, lumbar region; G89.29 Other chronic pain; I10 Essential (primary) hypertension; Z79.899 Other long term (current) drug therapy; M19.90 Unspecified osteoarthritis, unspecified site; Z88.0 Allergy status to penicillin

== ENCOUNTER → 2018-01-06 | Outpatient (CLI) | payer OTHER, MEDICARE ==
--- NOTE | 2018-02-16 15:49 | PAINCON ---
[address] [address] PAIN MANAGEMENT CONSULTATION Name: HARTLEYVERONIKA L [id number] Admission: 01/06/18 Attend Phys: Marisa Kraus MD Discharge: Date of : 51 Report #: [id number] THIS REPORT FOR: //name// CC: Chery Kraus DATE OF SERVICE: 01/06/2018 FOLLOWUP COMPLAINT: Low back pain. HISTORY: The patient is a 67-year-old female who has been seen in the pain clinic in the past because of lumbar radiculopathy. As you recall, she has scoliosis in her upper back. Has pain and discomfort, which has been quite problematic. She has undergone epidural steroid injections and gleaned benefits from these. She has received as much as 85% benefit from the injection. She also uses a lidocaine patch, which she feels has been beneficial as well. She has returned today for renewal of her medications. She has had no complication from the previous injections. She and her feel that things are going reasonably well. The patient oftentimes is relegated to being in bed when her pain becomes quite severe. She rates her pain as a 3-4 in intensity today. They have returned for renewal of her medications. ALLERGIES: THE PATIENT IS ALLERIC TO PENICILLIN. MEDICATIONS: Amitriptyline 75 mg 2 tablets at bedtime, or 2 tablets daily, Lipitor 20 mg, Flexeril 10 mg q.8 hours, Estrace 1 mg, ibuprofen 400 mg, omeprazole 20 mg, tramadol 50 mg b.i.d., donepezil 5 mg, gabapentin 100 mg t.i.d. The patient felt that the 5% Lidoderm patches were most efficacious. PAIN CLINIC ASSESSMENT/PQRS: 1. History of osteoarthritis. The patient has some significant arthritic changes in her thoracic spine and in the cervical area. The patient has not been treated for rheumatoid arthritis. 2. Height 5 feet 7 inches, weight 152 pounds, BMI is 24. 3. Vital signs: Blood pressure 154/73, heart rate 84, respiratory rate 16, room air saturation is 96% and temperature 98.0. Pain intensity 04/14. 4. Fall history: The patient has not fallen in the last 3 months. 5. Blood thinner. The patient is not on a blood thinning medication. 6. Opioids greater than 6 weeks. The patient is tramadol to help control her pain. 7. Hypertension. The patient is being treated for hypertension. 8. Risk assessment tool, low for opioid use. 9. Functional assessment tool. 10. Recreational drug use. The patient denies use of recreational drugs. 10. Tobacco: The patient smoked cigarettes for 45 years, stopped 3-1/2 [place] [address] PAIN MANAGEMENT CONSULTATION Name: VERONIKA HARTLEY Room: [facility]#: [id number] Admission: 01/06/18 Attend Phys: Marisa Kraus MD Discharge: Date of : 51 Report #: [id number] 11. Alcohol: The patient denies use of alcoholic beverages on a regular basis. PHYSICAL EXAMINATION: GENERAL: The patient is a well-developed, well-nourished white female. Appears her stated age. She is alert and oriented x 3. Has somewhat slow response time, which is baseline for her. She is alert and engaging HEENT: Normocephalic, atraumatic. Extraocular eye muscles intact. The patient is wearing glasses. Hearing is within normal limits. Mucous membranes are moist. NECK: Without adenopathy or JVD. Has less pain in the cervical area today. LUNGS: Clear to auscultation without rales HEART: Regular rate. S1, S2. ABDOMEN: Nontender. MUSCULOSKELETAL: Without significant kyphosis. The patient has a rightward been in her spine with rotation to the right. No significant lordosis. The patient has pain that radiates around the right loin area. Strength to the lower extremities, judged to be 5/5 upper extremities 5/5. IMPRESSION: 1. Chronic left and right back pain. 2. History of cervical radiculopathy. 3. Lumbar radiculopathy with significant scoliosis. 4. Cervical spondylosis. 5. Cervical radiculopathy. 6. Chronic intractable pain involving the low back area. RECOMMENDATIONS: We discussed treatment options with the patient and her . She will continue with her current use of tramadol, ibuprofen and Flexeril. A script for hydrocodone 5/325 one p.o. q.8 hours p.r.n., total of 20 tablets provided. The patient and her will call us should she need. Possibility of epidural steroid injection in the future is still an option. We would like to thank you for letting us participate in her care. We hope she continues to improve. <ELECTRONICALLY SIGNED> By: Marisa Kraus MD 02/16/18 1549 [id number]. Gabe Kraus MD /nt
== END ==
LOC: M.PC 04:48
DX: M41.86 Other forms of scoliosis, lumbar region (principal); M47.22 Other spondylosis with radiculopathy, cervical region; G89.4 Chronic pain syndrome

== ENCOUNTER → 2018-03-08 | Outpatient (CLI) | payer OTHER, MEDICARE ==
[~2018-03-08] MED LIST changes: -ARICEPT 5 MG TAB5 MG PO; +ARICEPT10 MG PO; +NAMENDA 10 MG T10 MG PO
--- NOTE | ~2018-03-08 | PAINCON ---
[address] [address] PAIN MANAGEMENT CONSULTATION Name: VERONIKA HARTLEY Room: [facility]meet#: [id number] Admission: 03/08/18 Attend Phys: Marisa Kraus MD Discharge: Date of : 51 Report #: [id number] THIS REPORT FOR: //name// CC: Chery Kraus DATE OF SERVICE: 03/08/2018 CHIEF COMPLAINT: Chronic back pain as well as cervical neck pain. HISTORY: The patient is a 68-year-old female who has been followed in the pain clinic because of history of cervical radiculopathy as well as lumbar radiculopathy. She finds that the lumbar radiculopathy is most problematic. She has scoliosis in the upper back. Epidural steroid injections in the past have been beneficial. She was given hydrocodone to take in the interim after the last injection. She took 2 pills. Overall, things are going reasonably well. She and her are contemplating going to [place] to see family members. For the long ride they would like to undergo an epidural steroid injection prior to that. The patient has pain, which she rates as a 3 in the morning. It continues to rise as the day goes on. May rise to a level where she notes pain is problematic and she retires to bed for an hour and half or so. She then gets up and resumes her activity and then follows up with going to bed in the evening. The patient has pain and discomfort in the cervical area. She has undergone a cervical epidural steroid injection and gleaned benefit from that. Her feels that her pain is exacerbated in her neck and upper back because of prolonged time spent at the computer. She does get some enjoyment of this and continues to engage in this activity. ALLERGIES: THE PATIENT IS ALLERGIC TO PENICILLIN. MEDICATIONS: Amitriptyline 75 mg 2 tablets p.o. at bedtime, 2 tablets daily, Lipitor 20 mg, Flexeril 10 mg q. 8 hours, Estrace 1 mg, ibuprofen 400 mg, omeprazole 20 mg, tramadol 50 mg b.i.d., donepezil 5 mg, gabapentin 100 mg t.i.d. The patient felt that Lidoderm patches have been efficacious. PAIN CLINIC ASSESSMENT/PQRS: 1. History of osteoarthritis: The patient has arthritic changes in the thoracic spine and cervical spine. She has not been treated for rheumatoid arthritis. 2. Height 5 feet 7 inches, weight 151 pounds, BMI is 23.8. 3. Vital signs: Blood pressure 135/62, heart rate 71, respiratory rate 16, room air saturation 97%, temperature 97.6. 4. Pain intensity: 4/10. 5. Fall history: The patient has not fallen in the last 3 [place] [address] PAIN MANAGEMENT CONSULTATION Name: VERONIKA HARTLEY Room: [facility]#: [id number] Admission: 03/08/18 Attend Phys: Marisa Kraus MD Discharge: Date of : 51 Report #: [id number] 6. Blood thinner: The patient is not on a blood thinning medication. 7. Opioid greater than 6 weeks: The patient is continuing to use tramadol. Uses hydrocodone rarely. 8. Hypertension: The patient is being treated for hypertension. 9. Risk assessment tool, low for opioid use. 10. Functional assessment tool. 11. Recreational drug use: The patient denies use of recreational drugs. 12. Tobacco: The patient smoked cigarettes for 45 years, stopped 3-1/2 years ago. 13. Alcohol: The patient denies use of alcoholic beverages on a regular basis. PHYSICAL EXAMINATION: GENERAL: The patient is a well-developed, well-nourished white female. She appears her stated age. She is alert and oriented x 3. Affect is appropriate. The patient is slow to response. Her fills in for a portion of her history and she remains alert and engaging. HEENT: Normocephalic, atraumatic. Extraocular eye muscles intact. The patient is wearing glasses. Hearing is within normal limits. Mucous membranes are moist. NECK: Without adenopathy or JVD. The patient has some pain in her cervical area but it is not that problematic today. LUNGS: Clear to auscultation without rhonchi. HEART: Regular rate. S1, S2. ABDOMEN: Nontender. Bowel sounds present. MUSCULOSKELETAL: Without significant kyphosis. The patient has a rightward scoliosis with rotation. No significant lordosis. The patient has pain that radiates down and around the right groin area into the loin. Strength is judged to be 5-/5 for the upper extremities and 5-/5 for the lower extremities. IMPRESSION: 1. Chronic left and right back pain. 2. History of cervical radiculopathy. 3. Lumbar radiculopathy with significant scoliosis to the right. 4. Cervical spondylosis. 5. Cervical radiculopathy. 6. Chronic intractable pain involving the low back area. RECOMMENDATIONS: We discussed treatment options with the patient. Risks and benefits of an epidural steroid injection were again reviewed. The patient feels that these injections have been helpful. She has been able to participate in activities of daily living with less painful existence. She continues to watch and use her computer. Notes that this does cause some increased problems with her neck pain. Overall, she feels that the back pain is more problematic than the cervical radicular pain she had been experiencing. She and her have come to the conclusion that another injection in the low back area, which has been most helpful, would be reasonable. [place] [address] PAIN MANAGEMENT CONSULTATION Name: HARTLEYVERONIKA L Room: [facility]#: [id number] Admission: 03/08/18 Attend Phys: Marisa Kraus MD Discharge: Date of : 51 Report #: [id number] clinic at which time she will then undergo a thoracic epidural steroid injection in the T12-L1 area. We would like to thank you for letting us participate in her care. She will still take the hydrocodone 18 pills out of 20, which she continues to have if her pain becomes more problematic. She will continue with tramadol, ibuprofen and Flexeril. By: [id number] [id number]. Gabe Kraus MD /SMITH
== END ==
LOC: M.PC 05:22
DX: M54.2 Cervicalgia (principal); M54.5 Low back pain; M54.12 Radiculopathy, cervical region; M54.16 Radiculopathy, lumbar region; M47.892 Other spondylosis, cervical region; G89.4 Chronic pain syndrome

== ENCOUNTER → 2018-03-15 | Outpatient (CLI) | payer OTHER, MEDICARE ==
--- NOTE | ~2018-03-15 | PAINCON ---
[address] [address] PAIN MANAGEMENT CONSULTATION Name: NAEEMVERONIKA L Room: [facility] Harmeet#: [id number] Admission: 03/15/18 Attend Phys: Marisa Kraus MD Discharge: Date of : 51 Report #: [id number] THIS REPORT FOR: //name// CC: Chery Kraus DATE OF SERVICE: 03/15/2018 REASON FOR FOLLOWUP: Here to get an epidural injection. HISTORY OF PRESENT ILLNESS: The patient is a 68-year-old female who has been followed in the Pain Clinic because of history of radiculopathy. It involves her cervical area as well as her lumbar area. She finds that the lumbar area is the most problematic at this juncture. As you recall, she has significant amounts of scoliosis in the upper extremity with bend toward the right. She has had epidural steroid injections in the past and found these beneficial. She also finds that hydrocodone taken can be beneficial. She tries to limit the amount of this medication she is taking. She and her are contemplating going to [place] for the holidays to be with family. She would like to proceed with an epidural steroid injection. This has been beneficial. When she went to [place], she noted significant improvement as well. Again, because of the worsening of her pain over the last few weeks, she has decided to come for another injection. She has had no complication from the injections in the past. She does have some onset of dementia. Her is with her. They both agreed to proceed with an injection today. ALLERGIES: THE PATIENT IS ALLERGIC TO PENICILLIN. MEDICATIONS: Amitriptyline 75 mg 2 tablets at bedtime, 2 tablets daily, Lipitor 20 mg, Flexeril 10 mg q. 8 hours, Estrace 1 mg, ibuprofen 400 mg, omeprazole 20 mg, tramadol 50 mg b.i.d., donepezil 5 mg, gabapentin 100 mg t.i.d. The patient felt that the Lidoderm patches continue to be efficacious and finds those beneficial. PAIN CLINIC ASSESSMENT AND PQRS: 1. History of osteoarthritis: The patient has arthritic changes in the thoracic area and cervical spine. She is not being treated for rheumatoid arthritis. 2. Height 5 feet 7 inches, weight 151 pounds, BMI is 23.8. 3. Vital signs: Blood pressure 125/78, heart rate 70, respiratory rate 16, room air saturation 99%, temperature is 77.9. 4. Pain intensity: 10/10. 5. Fall history: The patient has not fallen in the last 3 months. 6. Blood thinner: The patient is not on a blood thinning medication. 7. Opioids greater than 6 weeks: The patient continues to use tramadol and [facility] [address] [place] [address] PAIN MANAGEMENT CONSULTATION Name: VERONIKA HARTLEY Room: [facility]#: [id number] Admission: 03/15/18 Attend Phys: Marisa Kraus MD Discharge: Date of : 52 Report #: [id number] rarely uses hydrocodone to help control the pain. 8. Hypertension: The patient is being treated for hypertension. 9. Risk assessment tool: Low for opioid use. 10. Functional assessment tool. 11. Recreational drug use: The patient denies use of recreational drugs. 12. Tobacco: The patient smoked cigarettes in the past for 45 years, stopped 3-1/2 years ago. 13. Alcohol: The patient denies use of alcoholic beverages on a regular basis. PHYSICAL EXAMINATION: GENERAL: The patient is a well-developed, well-nourished white female. She appears her stated age. She is alert and oriented x 3. Affect is appropriate. Speech is fluent. HEENT: Normocephalic, atraumatic. Extraocular eye muscles intact. Sclerae nonicteric. Mucous membranes are moist. The patient is wearing glasses. NECK: Without adenopathy or JVD. She has some pain in the cervical area. LUNGS: Clear to auscultation without rhonchi. HEART: Regular rate. S1 and S2. ABDOMEN: Nontender. Bowel sounds present. MUSCULOSKELETAL: Without significant kyphosis. The patient does have scoliosis a rightward movement and rotation. The patient is not having significant amount of lordosis. The patient does have pain that radiates around the right groin area and into her loin. Strength is judged to be 5-/5 for the upper extremities and 5-/5 for the lower extremities. IMPRESSION: 1. Chronic left and right back pain. 2. History of cervical radiculopathy. 3. Lumbar radiculopathy with significant scoliosis to the right. 4. Cervical spondylosis. 5. Cervical radiculopathy. 6. Chronic intractable pain involving the lower back area. RECOMMENDATIONS: We discussed treatment options with the patient and her . Again, the risks and benefits of the procedure, which could include but are not limited to infection, worsening pain, no improvement in pain were discussed. The patient elects to proceed. PROCEDURE NOTE: The patient was taken to the examination area. She was assisted in getting on the examination table. Fluoroscopy using anterior as well as lateral viewing was provided. The patient's back was sterilely prepped with betadine solution. At the T12-L1 area, 0.25% bupivacaine was infiltrated. A 17-gauge Tuohy with loss of resistance technique was used at the L1-L2 interspace. A total of 80 mg Depo-Medrol, 40 mg triamcinolone, and 2 mL of 0.25% bupivacaine was then infiltrated and injected. The patient's pain score started as a 10 at the beginning and decreased to 0 [place] [address] PAIN MANAGEMENT CONSULTATION Name: VERONIKA HARTLEY Room: [facility]#: [id number] Admission: 03/15/18 Attend Phys: Marisa Kraus MD Discharge: Date of : 52 Report #: [id number] discharge. A total of 12 seconds fluoroscopy time was used. The patient remained for an appropriate amount of time. She will follow up in the future as needed. We would like to thank you for letting us participate in her care. We hope she continues to improve. By: [id number] [id number]. Gabe Kraus MD /nt
== END | disposition home or self-care (01) ==
LOC: M.PC 04:42
DX: M54.16 Radiculopathy, lumbar region (principal); G89.29 Other chronic pain; M41.86 Other forms of scoliosis, lumbar region; M54.12 Radiculopathy, cervical region; I10 Essential (primary) hypertension; Z88.0 Allergy status to penicillin; Z79.899 Other long term (current) drug therapy; Z98.890 Other specified postprocedural states; Z87.891 Personal history of nicotine dependence

== ENCOUNTER → 2018-05-17 | Outpatient (CLI) | payer OTHER, MEDICARE ==
--- NOTE | 2018-05-20 13:53 | PAINCON ---
[address] [address] PAIN MANAGEMENT CONSULTATION Name: NAEEMVERONIKA L Room: [facility] Ga#: [id number] Admission: 05/17/18 Attend Phys: Marisa Kraus MD Discharge: Date of : 52 Report #: [id number] THIS REPORT FOR: //name// CC: Chery Kraus DATE OF SERVICE: 05/17/2018 CHIEF COMPLAINT: "I would like to have another injection. They have been really helpful." HISTORY: The patient is a 68-year-old female, who has been followed in the pain clinic. She has a history of cervical radiculopathy as well as lumbar radiculopathy. At this juncture, she has noticed that she continues to have pain and discomfort involving her back. She rates the pain in her back as a 6-1/2. She rates the pain in her neck as 5/10. She notices that past epidural steroid injections have been quite beneficial. As you may recall, she has a significant amount of scoliosis with a rightward bend. She finds that hydrocodone is beneficial. She and her went to see family members in [place]. Things went really well. She noted significant improvement in her pain. She is noting now that her pain has started to escalate. At this point, she would like to proceed with another epidural steroid injection. She has not had complications in the past from this. As you may recall as well, she is having some onset of dementia. Her is with her and he corroborates her history. CURRENT MEDICATIONS: Amitriptyline 75 mg, 2 tablets at bedtime, Lipitor 20 mg, Flexeril 10 mg q.8 hours, Estrace 1 mg, ibuprofen 400 mg, omeprazole 20 mg, tramadol 50 mg b.i.d., donepezil 5 mg, and gabapentin 100 mg t.i.d. The patient feels that Lidoderm patches continue to be efficacious. ALLERGIES: THE PATIENT IS ALLERGIC TO PENICILLIN. PAIN CLINIC ASSESSMENT AND PQRS: 1. History of osteoarthritis. The patient has osteoarthritic changes in the thoracic area as well as in the cervical area. She is not being treated for rheumatoid arthritis. 2. Pain intensity is 6-7 for the back, 5/10 for the neck. 3. Fall history: The patient has not fallen in the last 3 months. 4. Blood thinner. The patient is not on a blood thinning medication. 5. Opioids greater than 6 weeks. The patient continues to use tramadol, rarely uses hydrocodone. 6. Hypertension. The patient is being treated for hypertension. 7. Risk assessment tool, low for opioid use. 8. Functional assessment tool. 9. Recreational drug use. The patient denies [place] [address] PAIN MANAGEMENT CONSULTATION Name: VERONIKA HARTLEY Room: [facility]#: [id number] Admission: 05/17/18 Attend Phys: Marisa Kraus MD Discharge: Date of : 52 Report #: [id number] 10. Tobacco: The patient has a 45-year history, stopped smoking about 3-1/2 years ago. 11. Alcohol: The patient denies use of alcoholic beverages. PHYSICAL EXAMINATION: GENERAL: The patient is a well-developed, well-nourished white female. She appears her stated age. She is alert and oriented x 3. Affect is appropriate. Speech is fluent. She appears to be well grounded in her history. Her corroborates her information. Height is 5 feet 7 inches, weight is 151 pounds, and BMI is 23.9. VITAL SIGNS: Blood pressure is 123/68, heart rate is 72, respiratory rate is 16, room air saturation is 98%, and temperature is 97.6. HEENT: Normocephalic, atraumatic. Extraocular eye muscles intact. Sclerae nonicteric. Mucous membranes are moist. NECK: Without adenopathy or JVD. She has some cervical pain. The patient is wearing glasses. LUNGS: Clear to auscultation without rhonchi or rales. HEART: Regular rate. S1, S2. ABDOMEN: Nontender. Bowel sounds present. MUSCULOSKELETAL: Without significant kyphosis. The patient does have scoliosis with a rightward movement and rotation. The patient does not have significant amount of lordosis. She has pain that radiates around into the right groin area and into her loin. Upper extremity muscle strength is judged to be 5-/5 for the upper extremities and 5-/5 for the lower extremities. IMPRESSION: 1. Left and right back pain. 2. History of cervical radiculopathy. 3. Lumbar radiculopathy with significant scoliosis to the right. 4. Cervical spondylosis. 5. Cervical radiculopathy. 6. Chronic intractable pain involving the lower back. RECOMMENDATIONS: The patient will return to the pain clinic at which time she will then undergo an epidural steroid injection. She has found that this has been quite beneficial in the past. The area of the T12-L1 area is where past injections have been fruitful. She will undergo an epidural steroid injection at that level when she returns. She will call us if she has any concerns. We would like to thank you for letting us to participate in her care. We hope she continues to improve. <ELECTRONICALLY SIGNED> By: Marisa Kraus MD 05/20/18 1353 [id number]. Gabe Kraus MD /PMT
== END ==
LOC: M.PC 13:10
DX: M47.22 Other spondylosis with radiculopathy, cervical region (principal); M41.86 Other forms of scoliosis, lumbar region; G89.4 Chronic pain syndrome; Z79.899 Other long term (current) drug therapy

== ENCOUNTER → 2018-05-26 | Outpatient (CLI) | payer OTHER, MEDICARE ==
--- NOTE | ~2018-05-26 | PAINCON ---
[address] [address] PAIN MANAGEMENT CONSULTATION Name: NAEEMVERONIKA L Room: [facility]#: [id number] Admission: 05/26/18 Attend Phys: Marisa Kraus MD Discharge: Date of : 52 Report #: [id number] THIS REPORT FOR: //name// CC: Chery Kraus DATE OF SERVICE: 05/26/2018 FOLLOWUP COMPLAINT: Here for an epidural injection. HISTORY OF PRESENT ILLNESS: The patient is a 68-year-old female, who has been followed in the Pain Clinic because of chronic back as well as neck pain. She has pain in her low back area as well as pain in the neck. She underwent an epidural steroid injection in March 2018, noticed 100% improvement in her pain. She was able to engage in many activities of daily living. At this juncture, she has noticed worsening of pain and recurrence. She has returned today for another epidural steroid injection, which has helped quite a bit in the past. She has pain in her back as well as in her neck. She feels that the back pain is more problematic than the neck. She feels that after the injection at the last time, she noted some improvement in the neck as well. She has been using [place]. She does not feel that this medication lasts as long as she would like. Also, she finds tramadol has been helpful in conjunction with ibuprofen and Flexeril. As you may recall, she has some beginnings of dementia onset. ALLERGIES: PENICILLIN. CURRENT MEDICATIONS: Amitriptyline 75 mg 2 tablets at bedtime, Lipitor 20 mg, Flexeril 10 mg q. 8 hours, Estrace 1 mg, ibuprofen 400 mg, omeprazole 20 mg, tramadol 50 mg b.i.d., donepezil 5 mg, gabapentin 100 mg t.i.d. The patient finds that Lidoderm patches continue to be efficacious. PAIN CLINIC ASSESSMENT AND PQRS: 1. History of osteoarthritis: The patient has osteoarthritic changes in her thoracic area as well as in the cervical area. She is not being treated for rheumatoid arthritis. 2. Height 5 feet 7 inches, weight 149 pounds, BMI is 23. 3. Vital signs: Blood pressure 157/83, heart rate 80, respiratory rate 16, room air saturation is 98%, temperature 98.3. 4. Pain intensity: 7/10. 5. Fall history: The patient has not fallen in the last 3 months. 6. Blood thinner: The patient is not on a blood thinning medication. 7. Opioids greater than 6 weeks: The patient receives tramadol and uses hydrocodone. 8. Hypertension: The patient is being treated for hypertension. 9. Risk assessment tool: Low for opioid use. 10. [place] [address] PAIN MANAGEMENT CONSULTATION Name: VERONIKA HARTLEY Room: [facility]#: [id number] Admission: 05/26/18 Attend Phys: Marisa Kraus MD Discharge: Date of : 52 Report #: [id number] 11. Recreational drug use: The patient denies use of recreational drugs. 12. Tobacco: The patient has a 45-year history of smoking, stopped 3-1/2 years ago. 13. Alcohol: The patient denies use of alcoholic beverages at this juncture. PHYSICAL EXAMINATION: GENERAL: The patient is a well-developed, well-nourished, white female. She is accompanied by her . She is alert and oriented x 3. Affect is appropriate. Speech is slow. HEENT: Normocephalic, atraumatic. Extraocular eye muscles intact. The patient is wearing glasses. LUNGS: Clear to auscultation without rhonchi or rales. ABDOMEN: Nontender. Bowel sounds present. MUSCULOSKELETAL: With some scoliosis of the back in rightward rotation in the thoracic area. The patient does not have a significant amount of lordosis. Upper extremity muscle strength is judged to be 5-/5 for the major muscle groups. Lower extremity muscle strength is judged to be 5/5 for the major muscle groups. IMPRESSION: 1. Left and right low back pain. 2. History of cervical radiculopathy. 3. Lumbar radiculopathy with significant scoliosis to the right. 4. Cervical spondylosis. 5. Cervical radiculopathy. 6. Chronic intractable pain involving the low back. RECOMMENDATIONS: We discussed the treatment options with the patient and her . She has returned to the Pain Clinic to undergo a thoracic epidural steroid injection. She has gleaned benefits from these. She is gleaned 100% improvement in the past. She has returned today with hopes of receiving more benefit. Risks and benefits again had been reviewed. PROCEDURE NOTE: She was taken to the procedure area. She was assisted in getting on the examination table. A pillow was placed under the abdomen in an effort to improve positioning. The patient's back was sterilely prepped with betadine solution. The L1-L2 area was sterilely prepped. 0.25% bupivacaine was infiltrated using a 25-gauge needle. A 17-gauge Tuohy with loss of resistance technique was used to gain access to the epidural space. There was no CSF, heme or paresthesia. Total of 80 mg Depo-Medrol, 40 mg triamcinolone, and 2 mL 0.25% bupivacaine was injected. The patient tolerated the procedure well. She remained in the Pain Clinic for an appropriate amount of time. She was then taken to the recovery area where she remained. A total of about 20 seconds fluoroscopy time was used. This was at the L1-[place] [address] PAIN MANAGEMENT CONSULTATION Name: VERONIKA HARTLEY Room: [facility]#: [id number] Admission: 05/26/18 Attend Phys: Marisa Kraus MD Discharge: Date of : 52 Report #: [id number] The patient will follow up in the future as needed. We would like to thank you for letting us participate in her care. We hope she continues to improve. By: [id number]. Gabe Kraus MD /kayce
== END | disposition home or self-care (01) ==
LOC: M.PC 05:11
DX: M54.16 Radiculopathy, lumbar region (principal); G89.29 Other chronic pain; M41.86 Other forms of scoliosis, lumbar region; Z88.0 Allergy status to penicillin; Z79.899 Other long term (current) drug therapy; Z79.891 Long term (current) use of opiate analgesic; Z98.890 Other specified postprocedural states; Z87.891 Personal history of nicotine dependence

== ENCOUNTER → 2018-07-19 | Outpatient (CLI) | payer OTHER, MEDICARE ==
--- NOTE | ~2018-07-19 | PAINCON ---
[address] [address] PAIN MANAGEMENT CONSULTATION Name: HARTLEYVERONIKA Obi [id number] Admission: 07/19/18 Attend Phys: Marisa Kraus MD Discharge: Date of : 52 Report #: [id number] THIS REPORT FOR: //name// CC: Chery Kraus DATE OF SERVICE: 07/19/2018 CHIEF COMPLAINT: 'The pain has returned and I would like to consider another epidural injection.' HISTORY: The patient is a 68-year-old female who has been followed in the Pain Clinic. She suffers from neck as well as back pain. She has scoliosis of her thoracic area. She has undergone epidural steroid injections in the past and gleaned significant benefit from these. She and her are contemplating going on vacation to [place]. They would like to undergo another epidural steroid injection. She generally gets much worth of benefit. She has had no complication from the injections in the past. Overall, she feels that things are going reasonably well and she is rating her pain as a 6-7/10. ALLERGIES: PENICILLIN. CURRENT MEDICATIONS: Amitriptyline 75 mg 2 tablets at bedtime, Lipitor 20 mg, Flexeril 10 mg q. 8 hours, Estrace 1 mg, ibuprofen 400 mg, omeprazole 20 mg, tramadol 50 mg b.i.d., donepezil 5 mg, gabapentin 100 mg t.i.d. The patient finds that Lidoderm patches are helpful as well. PAIN CLINIC ASSESSMENT AND PQRS: 1. History of osteoarthritis: The patient has some osteoarthritic changes in her thoracic area as well as in the cervical area. She is not being treated for rheumatoid arthritis. 2. Height 5 feet 7 inches, weight is 154 pounds, BMI is 24.4. 3. Vital signs: Blood pressure 130/70, heart rate 74, respiratory rate 16, room air saturation 98%, temperature 97.7. 4. Pain intensity: 6-1/2 to 7 out of 10. 5. Fall history: The patient has not fallen in the last 3 months. 6. Blood thinner: The patient is not on a blood thinning medication. 7. Opioids greater than 6 weeks: The patient receives medications of tramadol and hydrocodone through the Pain Clinic. 8. Hypertension: The patient is being treated for hypertension. 9. Risk assessment tool: Low for opioid use. 10. Functional assessment tool. 11. Recreational drug use: The patient denies use of recreational drugs. 12. Tobacco: The patient has not smoked for the last 3-1/2 years. She has 45-year smoking history. 13. Alcohol: The patient [place] [address] PAIN MANAGEMENT CONSULTATION Name: VERONIKA HARTLEY Room: [facility]#: [id number] Admission: 07/19/18 Attend Phys: Marisa Kraus MD Discharge: Date of : 52 Report #: [id number] PHYSICAL EXAMINATION: GENERAL: The patient is a well-developed, well-nourished, white female. She appears her stated age. She is alert and oriented x 3. She is accompanied by her . Speech is slow consistent with the speech pattern in the past. HEENT: Normocephalic, atraumatic. Extraocular eye muscles intact. Sclerae nonicteric. The patient is wearing glasses. LUNGS: Clear to auscultation without rhonchi or rales. ABDOMEN: Nontender. Bowel sounds present. MUSCULOSKELETAL: The patient with some scoliosis of the back with rightward rotation in the thoracic area. The patient does not have significant amount of lordosis. Upper extremity muscle strength is judged to be 5-/5 for the major muscle groups in the upper extremity. Lower extremity muscle strength is 5/5 for the major muscle groups in the lower extremity. IMPRESSION: 1. Left and right low back pain. 2. History of cervical radiculopathy. 3. Lumbar radiculopathy with significant scoliosis to the right. 4. Cervical spondylosis. 5. Cervical radiculopathy. 6. Chronic intractable pain involving the low back area. RECOMMENDATIONS: We discussed treatment options with the patient. The patient has undergone epidural steroid injections in the past. These have been quite helpful. She has gleaned greater than 80% relief. She is contemplating going to [place]. She finds this a very nice vacation with her . They are both looking forward to this. They would like to proceed with an epidural steroid injection. She will follow up in the future, at which time she will then undergo an epidural steroid injection to help control pain and discomfort that she is experiencing at this juncture. They are aware of the possible complication of the procedure because she has had this done on a number of occasions. She does have some increasing memory loss. Her is present and agrees with her to proceed with the injection. We would like to thank you for letting us participate in her care. We hope she continues to improve. By: [id number]. Gabe Kraus MD /nt
== END ==
LOC: M.PC 05:17
DX: M47.22 Other spondylosis with radiculopathy, cervical region (principal); M41.86 Other forms of scoliosis, lumbar region; G89.29 Other chronic pain; M19.90 Unspecified osteoarthritis, unspecified site; I10 Essential (primary) hypertension; Z87.891 Personal history of nicotine dependence; Z88.0 Allergy status to penicillin; Z79.899 Other long term (current) drug therapy; Z79.891 Long term (current) use of opiate analgesic

== ENCOUNTER → 2018-07-26 | Outpatient (CLI) | payer OTHER, MEDICARE ==
--- NOTE | ~2018-07-26 | PAINCON ---
[address] [address] PAIN MANAGEMENT CONSULTATION Name: NAEEMVERONIKA L [id number] Admission: 07/26/18 Attend Phys: Marisa Kraus MD Discharge: Date of : 52 Report #: [id number] THIS REPORT FOR: //name// CC: Chery Kraus DATE OF SERVICE: 07/26/2018 CHIEF COMPLAINT: Here for an epidural injection. HISTORY OF PRESENT ILLNESS: The patient is a 68-year-old female who has been followed in the pain clinic because of chronic pain. She has significant scoliosis. She has pain, which becomes quite problematic. She finds that epidural steroid injections provide her with significant amount of relief. She has returned today for an injection. Last injection provided about 80% relief from her pain. She has noted an increase in discomfort in the last few weeks. She rates her pain as a 6-1/2-7/10. She and her are contemplating going to [place]. They find great pleasure in this. This allows her to relax and be more comfortable. As you recall, she has some signs of decreasing mental capacity. She is having difficulty remembering things. ALLERGIES: PENICILLIN. CURRENT MEDICATIONS: Amitriptyline 7.5 mg 2 tablets at bedtime, Lipitor 20 mg, Flexeril 10 mg q.8 hours, Estrace 1 mg, ibuprofen 400 mg, omeprazole 20 mg, tramadol 50 mg b.i.d., donepezil 5 mg, gabapentin 100 mg t.i.d. The patient has used Lidoderm patches to help the pain as well. PAIN CLINIC ASSESSMENT AND PQRS: 1. The patient does have some arthritic changes in her thoracic area as well as in the cervical area. Pain in the back is most problematic. She is not being treated for rheumatoid arthritis. 2. Height 5 feet 7 inches, weight 154 pounds, BMI is 24.4. 3. Vital signs: Blood pressure 130/70, heart rate 74, respiratory rate 16, room air saturation 98%, temperature 97.7. 4. Pain intensity 6-/-10/12. 5. Fall history. The patient has not fallen in the last 3 months. 6. Blood thinner. The patient is not on a blood thinning medication. 7. Opioids greater than 6 weeks. The patient receives medications and uses tramadol and hydrocodone to help quell her pain. 8. Hypertension. The patient is being treated for hypertension. 9. Risk assessment tool, low for opioid use. 10. Functional assessment tool. 11. Recreational drug use. The patient denies use of recreational drugs. 12. Tobacco: The patient has not smoked for the last 3-1/2 years. She had a 45 [place] [address] PAIN MANAGEMENT CONSULTATION Name: VERONIKA HARTLEY Room: [facility]#: [id number] Admission: 07/26/18 Attend Phys: Marisa Kraus MD Discharge: Date of : 52 Report #: [id number] 13. Alcohol: The patient denies use of alcoholic beverages. PHYSICAL EXAMINATION: GENERAL: The patient is a well-developed, well-nourished white female. Appears her stated age. She is accompanied by her . She is alert and oriented x 3. Affect is appropriate. The patient is aware of the reason for coming to the pain clinic. States that she would like to undergo an epidural steroid injection. Finds that these have been helpful. Her corroborates her decision. HEENT: Normocephalic, atraumatic. Extraocular eye muscles intact. The patient has glasses on. LUNGS: Clear to auscultation. HEART: Regular rate. ABDOMEN: Nontender. NECK: Without adenopathy or JVD. MUSCULOSKELETAL: The patient has some scoliosis of the back with rightward rotation of the thoracic spine. Does not have a significant amount of lordosis. Upper extremity muscle strength is judged to be 5-/5 for the major muscle groups in the upper extremity. Lower extremity muscle strength 5-/5 for the major muscle groups of the lower extremity. IMPRESSION: 1. Left and right low back pain. 2. History of cervical radiculopathy. 3. Lumbar radiculopathy with significant scoliosis to the right. 4. Cervical spondylosis. 5. Cervical radiculopathy. 6. Chronic intractable pain in the low back area. RECOMMENDATIONS: We discussed treatment options with the patient and her . At this juncture, she has desired to undergo another epidural steroid injection. States that she gets about 80% benefit from the injection. She and her are contemplating going to [place] for the summer. She would like to proceed with an injection at this point, so she can have a more fruitful vacation. Risks and benefits again have been reviewed with the patient and her . They accept the risk and would like to proceed. PROCEDURE NOTE: The patient was taken to the procedure area. She was assisted in getting on the examination table. Her back was sterilely prepped with a Betadine solution. A 25-gauge needle was then advanced into the area of the L1/L2 interspace. There was no CSF, heme or paresthesia. Total of 80 mg Depo-Medrol, 40 mg triamcinolone and 2 mL of 0.25% bupivacaine was injected. Fluoroscopy using anterior, posterior as well as lateral viewing were implemented. The patient remained in the pain clinic for an appropriate amount of time. Her pain decreased to 6 at the time of discharge[place] [address] PAIN MANAGEMENT CONSULTATION Name: VERONIKA HARTLEY Room: [facility]#: [id number] Admission: 07/26/18 Attend Phys: Marisa Kraus MD Discharge: Date of : 52 Report #: [id number] in the future as needed. A total of approximately 36 seconds fluoroscopy time was used. By: [id number]. Gabe Kraus MD /SMITH
== END | disposition home or self-care (01) ==
LOC: M.PC 04:51
DX: M54.16 Radiculopathy, lumbar region (principal); G89.29 Other chronic pain; Z79.899 Other long term (current) drug therapy; Z88.0 Allergy status to penicillin; Z88.8 Allergy status to other drugs, medicaments and biological substances; Z79.891 Long term (current) use of opiate analgesic

== ENCOUNTER 2018-11-04 23:05 | Inpatient (IN) | payer OTHER, MEDICARE ==
[~2018-11-04] VITALS: Ht 172.7 cm; Wt 62.6 kg
[~2018-11-04 23:05] MED LIST changes: -HYDROCODONE-AP1 EAC6 PO; +NORCO 5-325 TA1 EAC1 PO; +OMEPRAZOLE 20 M20 M1 PO; -OMEPRAZOLE 20 M20 MG PO
[2018-11-04 23:07] VITALS: BP 174/89
[2018-11-04 23:34] LABS: ABSOLUTE BASOPHILS 0.1 thou/uL (0.0-0.2); ABSOLUTE LYMPHOCYTES 2.4 thou/uL (0.8-5.3); ABSOLUTE MONOCYTES 0.8 thou/uL (0.0-1.2); ABSOLUTE NEUTROPHILS 9.4 thou/uL (1.6-8.1); BASOPHILS 0.9 %; EOSINOPHILS 0.1 %; HEMATOCRIT 44.7 % (37.0-47.0); HEMOGLOBIN 15.1 gm/dL (12.0-15.0); LYMPHOCYTES 18.8 %; MCH 32.2 pg (26.0-34.0); MCHC 33.7 g/dL (28.0-37.0); MCV 95.5 fL (80.0-100.0); MPV 8.3 fl. (7.2-11.1); NUCLEATED RBCS 0 /100WBC; PLATELET COUNT* 346 thou/uL (150-400); POLYS 74.2 %; RBC 4.67 mil/uL (4.20-5.00); RDW-CV 13.5 % (10.5-14.5); WBC 12.7 thou/uL (4.0-11.0)
[2018-11-04 23:45] LABS: CALCIUM 10.1 mg/dL (8.5-10.1); POTASSIUM 3.6 mmol/L (3.5-5.1)
[2018-11-04 23:50] LABS: TOTAL BILIRUBIN 0.5 mg/dL (<0.1-1.0); TOTAL PROTEIN 7.7 g/dL (6.4-8.2)
[2018-11-05 02:04] LABS: URINE BILIRUBIN NEGATIVE (Negative); URINE BLOOD NEGATIVE (Negative); URINE CLARITY CLEAR; URINE COLOR YELLOW; URINE GLUCOSE-RANDOM NEGATIVE (Negative); URINE KETONES 2+ (Negative); URINE LEUKOCYTES-REFLEX NEGATIVE (Negative); URINE NITRITE-REFLEX NEGATIVE (Negative); URINE PROTEIN NEGATIVE (Negative); URINE SPECIFIC GRAVITY 1.015 (1.005-1.030); URINE UROBILINOGEN 0.2 E.U./dl (0.2-1.0)
[2018-11-05 03:01] VITALS: BP 132/95
[2018-11-05 03:45] VITALS: BP 115/63
[2018-11-05 07:25] VITALS: BP 129/71
[2018-11-05 10:23] LABS: ABSOLUTE BASOPHILS 0.1 thou/uL (0.0-0.2); ABSOLUTE MONOCYTES 0.7 thou/uL (0.0-1.2); ABSOLUTE NEUTROPHILS 8.5 thou/uL (1.6-8.1); BASOPHILS 0.7 %; HEMATOCRIT 41.8 % (37.0-47.0); HEMOGLOBIN 13.9 gm/dL (12.0-15.0); MCH 32.4 pg (26.0-34.0); MCHC 33.2 g/dL (28.0-37.0); MCV 97.4 fL (80.0-100.0); MONOCYTES 6.4 %; MPV 8.3 fl. (7.2-11.1); NUCLEATED RBCS 0 /100WBC; PLATELET COUNT* 288 thou/uL (150-400); POLYS 74.9 %; RDW-CV 13.7 % (10.5-14.5); WBC 11.3 thou/uL (4.0-11.0)
[2018-11-05 10:28] LABS: CALCIUM 9.4 mg/dL (8.5-10.1); CREATININE 0.9 mg/dL (0.6-1.3); POTASSIUM 3.4 mmol/L (3.5-5.1)
[2018-11-05 10:33] LABS: ALBUMIN 3.6 g/dL (3.4-5.0); TOTAL BILIRUBIN 0.4 mg/dL (<0.1-1.0); TOTAL PROTEIN 7.1 g/dL (6.4-8.2)
[2018-11-05 16:00] VITALS: BP 122/66
[2018-11-05 17:29] LABS: AMP/METHAMP Negative (Negative); BARBITURATES Negative (Negative); BENZODIAZEPINES Negative (Negative); COCAINE Negative (Negative); METHADONE Negative (Negative); OPIATES Negative (Negative); PCP Negative (Negative); THC POSITIVE (Negative)
[2018-11-05 21:00] VITALS: BP 131/71
[2018-11-06 03:57] LABS: ABSOLUTE LYMPHOCYTES 2.3 thou/uL (0.8-5.3); ABSOLUTE MONOCYTES 0.4 thou/uL (0.0-1.2); ABSOLUTE NEUTROPHILS 3.9 thou/uL (1.6-8.1); BASOPHILS 0.6 %; EOSINOPHILS 0.3 %; HEMATOCRIT 38.3 % (37.0-47.0); HEMOGLOBIN 12.8 gm/dL (12.0-15.0); LYMPHOCYTES 34.9 %; MCH 32.8 pg (26.0-34.0); MCHC 33.4 g/dL (28.0-37.0); MONOCYTES 5.9 %; MPV 8.3 fl. (7.2-11.1); NUCLEATED RBCS 0 /100WBC; PLATELET COUNT* 262 thou/uL (150-400); POLYS 58.3 %; RBC 3.91 mil/uL (4.20-5.00); RDW-CV 13.5 % (10.5-14.5); WBC 6.7 thou/uL (4.0-11.0)
[2018-11-06 04:07] LABS: PROTIME 9.9 Seconds (9.20-11.50)
[2018-11-06 04:12] LABS: ALBUMIN 3.1 g/dL (3.4-5.0); CREATININE 0.9 mg/dL (0.6-1.3); POTASSIUM 3.6 mmol/L (3.5-5.1); TOTAL BILIRUBIN 0.5 mg/dL (<0.1-1.0); TOTAL PROTEIN 6.1 g/dL (6.4-8.2)
[2018-11-06 16:00] VITALS: BP 134/78
[2018-11-06 21:00] VITALS: BP 143/88
[2018-11-07 04:56] LABS: ABSOLUTE BASOPHILS 0.1 thou/uL (0.0-0.2); ABSOLUTE LYMPHOCYTES 2.8 thou/uL (0.8-5.3); ABSOLUTE MONOCYTES 0.6 thou/uL (0.0-1.2); ABSOLUTE NEUTROPHILS 3.7 thou/uL (1.6-8.1); BASOPHILS 0.9 %; EOSINOPHILS 0.6 %; HEMATOCRIT 40.3 % (37.0-47.0); HEMOGLOBIN 13.6 gm/dL (12.0-15.0); LYMPHOCYTES 39.1 %; MCHC 33.8 g/dL (28.0-37.0); MCV 97.6 fL (80.0-100.0); MONOCYTES 8.8 %; MPV 8.1 fl. (7.2-11.1); NUCLEATED RBCS 0 /100WBC; PLATELET COUNT* 266 thou/uL (150-400); POLYS 50.6 %; RBC 4.13 mil/uL (4.20-5.00); RDW-CV 13.7 % (10.5-14.5); WBC 7.2 thou/uL (4.0-11.0)
[2018-11-07 05:02] LABS: ALBUMIN 3.3 g/dL (3.4-5.0); CALCIUM 9.2 mg/dL (8.5-10.1); POTASSIUM 3.4 mmol/L (3.5-5.1); TOTAL BILIRUBIN 0.7 mg/dL (<0.1-1.0); TOTAL PROTEIN 6.5 g/dL (6.4-8.2)
--- NOTE | 2018-11-07 15:51 | EKG ---
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1950 Requested By: Kiet Howell Order Number: [id number] Cristina MD: Hung Landry Measurements Intervals [place] Rate: 73 P: 79 [place]: 107 QRS: 58 QRSD: 118 T: 11 QT: 413 QTc: 456 Interpretive Statements Sinus rhythm Short [place] interval Nonspecific intraventricular conduction delay Borderline low voltage, extremity leads Minimal ST depression, diffuse leads Compared to ECG 08/15/2012 11:42:06 ST (T wave) deviation still present Electronically Signed On 11-07-2018 15:51:32 CDT by Hung Landry [email or web address] <ELECTRONICALLY SIGNED> By: Hung Landry MD, [facility] 11/07/18 1551 1211 1211 Hung Landry MD, [facility] /EPI
[2018-11-07 19:55] VITALS: BP 134/71
[2018-11-08 00:15] VITALS: BP 143/73
[2018-11-08 03:40] VITALS: BP 120/79
[2018-11-08 07:50] VITALS: BP 119/61
--- NOTE | 2018-11-08 08:54 | OP ---
[address] [address] OPERATIVE REPORT Name: VERONIKA HARTLEY Room: [address] [place] .#: [id number] Admission: 11/05/18 Attend Phys: Cecilia Adhikari Discharge: Date of : 52 Report #: [id number] THIS REPORT FOR: //name// CC: Chery Ty DICTATED BY: Kevin Beltrán DO DATE OF SERVICE: 11/07/2018 PREOPERATIVE DIAGNOSIS: Cholelithiasis. POSTOPERATIVE DIAGNOSES: Chronic cholecystitis with cholelithiasis and intra-abdominal adhesions. SURGEON: Kiet Howell MD EXPERIENCE PLANNING STRATEGIST: Kevin Beltrán, PGY5 OPERATIONS PERFORMED: Laparoscopic cholecystectomy with lysis of adhesions, less than 30 minutes. ANESTHESIA TYPE: General and local. ESTIMATED BLOOD LOSS: 10 mL. SPECIMENS REMOVED: Gallbladder and contents. COMPLICATIONS: None. HISTORY OF PRESENT ILLNESS: The patient is a very pleasant 68-year-old female who presented to the hospital a couple days ago with persistent nausea and vomiting as well as some abdominal pain. She has had multiple episodes of this nausea and vomiting and had a complete workup done back home in [place] recently, about 6 weeks ago, where she had an upper scope done as well as biopsies. Apparently, there were no significant abnormalities that they found at that time. She was placed on some omeprazole, but her symptoms persisted here recently. She states that her pain is sometimes in her upper abdomen, also had some lower abdominal pain. She had a CAT scan performed here, which showed that she did have some possible gallstones, but there were no obvious abnormalities that were described, which would contribute to her pain. We did perform an abdominal ultrasound, which showed the patient did have gallbladder full of gallstones and possible some mild wall thickening. Given her symptoms as well as her imaging studies, we discussed with the patient the possibility that some of her symptoms could be caused by her gallbladder. We could not guarantee that her symptoms were completely resolved with a cholecystectomy, [place] [address] OPERATIVE REPORT Name: VERONIKA HARTLEYN Room: [address] [place] .R.#: [id number] Admission: 11/05/18 Attend Phys: Cecilia Adhikari Discharge: Date of : 52 Report #: [id number] we were able to provide her with some education as well as some information and she agreed to proceed with a laparoscopic cholecystectomy. We told her prior to surgery that we could also look in her pelvis to see if there is any type of adhesions, given her previous midline hysterectomy in the past. The patient and her both agreed and voiced complete understanding and wished to proceed. A complete description of procedure was reviewed in detail with the patient. All risks, benefits, and complications were discussed prior to surgery include, but are not limited to bleeding, infection, hernias at incision sites, persistent symptoms. Continued pain, pain or numbness at incision sites, injury to surrounding structures such as stomach, small bowel as well as common bile duct, injury to bowel, possible DVT, anesthesia risks, and other common complications associated with the procedure. The patient and her both voiced complete understanding and wished to proceed once again. DESCRIPTION OF PROCEDURE: After appropriate consents were obtained, the patient was taken to the operating room, and laid in the supine position. Prior to bringing her back to the operating room, the patient was given ICG (immunofluorescent green) via IV. After she was taken to the operating room and laid in the supine position, she has a safety strap placed across the lap and arms placed out at her sides. She had a foot plate placed into the bed to help secure it to the bed. All lines were placed by Anesthesia. She was sedated and intubated by Anesthesia without difficulty. She was given perioperative antibiotics at this time. Her abdomen was then exposed, prepped and draped in standard sterile fashion. A timeout was performed to correctly identify the patient and procedure. We started by making a midline infraumbilical incision. We chose to use infraumbilical because the patient's distance from her right costal margin to her umbilicus was very short distance. Once we made our incision, we dissected down through subcutaneous tissue to encounter the anterior abdominal wall fascia. Once the fascia was encountered, it was scored using electrocautery and grasped between 2 Louie clamps. The fascia was then elevated and we entered the patient's peritoneum bluntly using hemostat. We used a finger to sweep the intraabdominal cavity and there appeared to be some adhesions present. There did not appear to be any that would be obstructing her in trocar placement, however. We then proceeded with placing 2 separate 0 Vicryl sutures in a lazpwc-fu-cadnq fashion at the superior and inferior aspect of the incision site in the fascia. These acted as stay sutures for our Zeke trocar. The Zeke trocar was introduced into the patient's abdomen and the balloon was insufflated. The camera was introduced and the patient's abdomen was insufflated to 15 mmHg. Upon initial inspection, the patient had some significant adhesions in the infraumbilical area near our incision site. We elected to place a subxiphoid port, which was a 5 mm port, under direct visualization. This allowed us to remove our camera and further observe the pelvic adhesions. We proceeded to placing our 2 lateral right-sided abdominal ports, both under direct visualization. These were both 5 mm ports as well. This was allowed to take down the adhesions using a blunt grasper and electrocautery. We took down the entire pelvic and infraumbilical adhesions, [address] [address] OPERATIVE REPORT Name: NAEEMVERONIKA TORRESN Room: [address] IN [facility].#: [id number] Admission: 11/05/18 Attend Phys: Cecilia Adhikari Discharge: Date of : 52 Report #: [id number] staying close to the peritoneum. These all appeared to be omental adhesions. She had an obvious separation of her peritoneum with some exposed rectus muscle, likely from her prior hysterectomy. Once we were finished taking down the adhesions, which took approximately 30 minutes, we then proceeded with our laparoscopic cholecystectomy. The patient was placed in the head up and left side down position. The gallbladder was grasped and elevated cephalad and anteriorly. It was somewhat difficult to grasp as it was packed full of stones. There was obviously some inflammation along the wall of the gallbladder. We started laterally by grasping Luiza's pouch and retracting it medially. We used electrocautery to enter into the peritoneum overlying the gallbladder. This was carried up superiorly. We were able to identify the lateral side of her cystic duct and then we turned our attention more medially. The peritoneum was opened medially as well and we were able to completely dissect out our cystic duct. This was done using electrocautery as well as blunt dissection with a [place] dissector. Once the cystic duct was completely dissected out and we were able to visualize the inferior aspect of the liver, we then turned our attention to identify the cystic artery. The cystic artery was just lateral to the cystic duct and this was completely dissected out and skeletonized as well. Once we were pleased with our dissection, these were only 2 structures coursing directly into the gallbladder and we were able to visualize the common bile duct coursing below us, we proceeded with placing clips on our cystic duct and cystic artery. We did use Firefly to further identify the cystic duct as well as the common bile duct. The gallbladder did not fill with Firefly today, but we assumed it was likely due to the fact that she had so many stones. We placed 3 clips on the cystic duct and 2 clips on the cystic artery. The cystic duct and artery were then incised using laparoscopic scissors. There was no oozing or bleeding from the duct or the artery at this time. We then further completed our dissection using electrocautery to remove the gallbladder from the liver bed. There was no bleeding from the liver bed at the completion of this. Prior to removing the gallbladder completely from the liver bed, we were able to turn our attention back down to our clips and the clips appeared to be in place. There was no oozing once again from the cystic duct and no bleeding from the cystic artery. The gallbladder was then completely removed and placed in EndoCatch pouch. We again inspected our liver bed to ensure there was no bleeding and none was present. We then removed our trocars under direct visualization. There was no bleeding from any of the trocar sites at that time. The patient's abdomen was allowed to completely desufflate and we removed the gallbladder within the EndoCatch pouch from the infraumbilical incision site. We did have to further incise our fascia to completely remove the gallbladder given the amount of stones present. We passed this off as specimen to be sent to pathology for further evaluation. We then reapproximated our fascia using 0 Vicryl stitches in a ljfhgr-ro-mogeq fashion. We placed approximately four dnwhar-qi-qtydc stitches to reapproximate the fascia at this time. The fascia was injected using 0.5% Marcaine. The skin was closed using a 4-0 Monocryl stitch in a running subcuticular fashion. The remaining port sites were closed using a 4-0 Monocryl in an inverted interrupted fashion. We injected the [address] [address] OPERATIVE REPORT Name: VERONIKA HARTLEY Room: [address] [place] R.#: [id number] Admission: 11/05/18 Attend Phys: Cecilia Adhikari Discharge: Date of : 52 Report #: [id number] remaining incision sites using 0.5% Marcaine for local anesthesia. We completely cleaned and dried the patient's abdomen and placed Mastisol, Steri-Strips, as well as sterile Tegaderm over each incision. We placed gauze as well as tape to act as pressure dressings over these incisions. The patient tolerated the procedure well. All counts were correct x 2 at the end of this procedure. Dr. Howell was present and scrubbed for the procedure. She was allowed to awaken and was subsequently extubated in the OR and we transferred to PACU for further observation. She will then be returned to the floor, where she will be allowed to recover and then hopefully be discharged home soon within the next day or so if all goes well. <ELECTRONICALLY SIGNED> By: Kiet Howell, 11/08/18 0854 [id number] 1721Amarline Howell DO /kayce
[2018-11-08 09:15] LABS: ALBUMIN 3.4 g/dL (3.4-5.0); CREATININE 0.8 mg/dL (0.6-1.3); POTASSIUM 4.3 mmol/L (3.5-5.1); TOTAL BILIRUBIN 0.4 mg/dL (<0.1-1.0); TOTAL PROTEIN 6.2 g/dL (6.4-8.2)
[2018-11-08 09:41] VITALS: BP 119/61
--- NOTE | 2018-11-11 17:11 | PATH ---
[address] [address] PATHOLOGY RPT PROCEDURE Name: VERONIKA HARTLEY Room: [address] M.R.#: [id number] Admission: 11/05/18 Date of : 52 Discharge: 11/08/18 Report #: [id number] Path Case #: [id number] [facility] Accession Number: [id number] . 01 Material submitted: . gallbladder - GALLBLADDER . 01 Clinical history: . Cholelithiasis, cholecystitis . 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 - Surgical margin of cystic duct / neck free of malignancy and dysplasia and all surgical margins, including serosal surface, free of involvement. - Chronic and acute cholecystitis and cholelithiasis. - See comment. (ADAN:pit; 11/11/2018) QTP/11/11/2018 . 02 Comment: Surgical Pathology Cancer Case Summary . Protocol posting date: September 2016 . GALLBLADDER: . Procedure ___ Simple cholecystectomy (laparoscopic or open) . Tumor Site ___ Fundus ___ Body . Tumor Size Greatest dimension: 1.4 cm . Histologic Type ___ Adenocarcinoma . Histologic Grade ___ G3: Poorly differentiated . Tumor Extension ___ Tumor invades perimuscular [place] [address] PATHOLOGY RPT PROCEDURE Name: VERONIKA HARTLEY Room: [address] IN [facility].#: [id number] Admission: 11/05/18 Date of : 52 Discharge: 11/08/18 Report #: [id number] Path Case #: [id number] without serosal involvement . Margins . Cystic Duct Margin ___ Uninvolved by invasive carcinoma and high-grade intraepithelial neoplasia Distance of invasive carcinoma from margin: 3 cm . Liver Parenchymal Margin ___ Uninvolved by invasive carcinoma + Distance of invasive carcinoma from margin: 1.1 cm . + Lymphovascular Invasion + ___ Not identified . + Perineural Invasion + ___ Not identified . Regional Lymph Nodes ___ No lymph nodes submitted or found . . PATHOLOGIC STAGE CLASSIFICATION (pTNM, AJCC 8th EDITION) . Primary Tumor (pT) ___ pT2a:Tumor invades perimuscular connective tissue on the peritoneal side, without involvement of the serosa (visceral peritoneum) . Regional Lymph Nodes (pN) ___ pNX:Regional lymph nodes cannot be assessed . + Additional Pathologic Findings + ___ Cholelithiasis + ___ Chronic cholecystitis + ___ Acute cholecystitis . The tumor is initially identified in A1 and in additionally submitted section A5 and is entirely confined to the gallbladder. It is seen to extend through the muscular wall in A1 and is located 1.5 mm away from the serosal surface in this region. A1 and A5 reviewed with Dr. Tien Bob who agrees with the diagnosis. Preliminary findings discussed with Dr. Howell at approximately 12:40 on 11/09/2018. . (ADAN:[facility]; 11/11/2018) . 02 Electronically signed: . Reji Chaudhry MD, Pathologist NPI- [id number] [place] [address] PATHOLOGY RPT PROCEDURE Name: VERONIKA HARTLEY Room: [address]#: [id number] Admission: 11/05/18 Date of : 52 Discharge: 11/08/18 Report #: [id number] Path Case #: [id number] . 01 Gross description: . The specimen is received in formalin, labeled "jeffrey Devries". Received is a previously opened gallbladder measuring 5.1 x 2.5 x 1.8 cm in greatest dimensions displaying a pink-leung to adipose covered serosal surface. Opening the specimen reveals a velvety, pink-leung mucosa with a gallbladder wall thickness of 0.2 cm. Within the overlying adipose tissue, there is a pale leung, firm possible nodule identified measuring 0.4 cm in maximum dimensions. The serosal surface of this area is inked black. Calculi are present displaying a yellow-leung and smooth to nodular appearance, and no masses or lesions are noted grossly. International Controller sections, to include the proximal margin, are submitted in cassette A1. ([facility]; 11/08/2018) . After initial microscopic examination, the specimen is re-examined. The liver bed is inked black. The possible nodule is located along the body of the gallbladder, 3.0 cm from the proximal margin, and approximately 1.1 cm from the liver bed. The gallbladder wall becomes thickened near the fundal aspect, measuring up to 0.5 cm in thickness. The mucosa in this thickened area is pale leung and granular in appearance. No additional nodules are noted within the attached adipose tissue. Additional alternating sections are submitted from proximal to fundal aspects in cassettes A2 through A5, with the thickened gallbladder wall at the fundal aspect submitted in cassette A5. ([facility]; 11/09/2018) QAC/QAC . 02 Pathologist provided ICD-10: C23, D01.5, K80.10 . 02 CPT . 023342 Specimen Comment: A courtesy copy of this report has been sent to Specimen Comment: [phone], , . Specimen Comment: Report sent to ,DR RODRIGUEZ / DR TREVINO Performed at: 01 [facility] [address], [place], [place] [id number] MD Andrew Snell MD Phone: [phone] Performed at: 02 [facility] [address], [place], [place] [id number] MD Reji Chaudhry MD Phone: [phone]
== END 2018-11-08 14:49 | disposition home or self-care (01) | DRG 418 ==
LOC: M.ERS 23:05 → M.ORTHSURG 11-05 02:41 → M.TBA-ER 11-05 02:41 → M.ORTHSURG 11-05 03:16
PROVIDERS: Emergency Medicine; Internal Medicine Gastroenterology; Surgery; ADMIT Internal Medicine
DX: K80.10 Calculus of gallbladder with chronic cholecystitis without obstruction (principal); R65.10 Systemic inflammatory response syndrome (SIRS) of non-infectious origin without acute organ dysfunction; F03.90 Unspecified dementia, unspecified severity, without behavioral disturbance, psychotic disturbance, mood disturbance, and anxiety; E78.00 Pure hypercholesterolemia, unspecified; G56.00 Carpal tunnel syndrome, unspecified upper limb; K44.9 Diaphragmatic hernia without obstruction or gangrene; K21.9 Gastro-esophageal reflux disease without esophagitis; M41.80 Other forms of scoliosis, site unspecified; E86.0 Dehydration; E87.6 Hypokalemia; Z88.0 Allergy status to penicillin; Z88.8 Allergy status to other drugs, medicaments and biological substances; Z79.899 Other long term (current) drug therapy; Z90.710 Acquired absence of both cervix and uterus; Z82.0 Family history of epilepsy and other diseases of the nervous system; Z87.891 Personal history of nicotine dependence

== ENCOUNTER → 2018-11-22 | Outpatient (CLI) | payer OTHER, MEDICARE ==
[~2018-11-22] MED LIST changes: -OMEPRAZOLE 20 M20 M1 PO; +OMEPRAZOLE40 MG PO
--- NOTE | ~2018-11-22 | PAINCON ---
[address] [address] PAIN MANAGEMENT CONSULTATION Name: VERONIKA HARTLEY Room: [facility] [place] Ga#: [id number] Admission: 11/22/18 Attend Phys: Marisa Kraus MD Discharge: Date of : 52 Report #: [id number] THIS REPORT FOR: //name// CC: Chery Kraus DATE OF SERVICE: 11/22/2018 CHIEF COMPLAINT: "Here for evaluation. I would like to have another epidural injection because my back is really hurting." HISTORY: The patient is a 68-year-old female who has been followed in the pain clinic because of chronic pain. As you may recall, she suffers from spinal stenosis. She has a significant amount of pain associated with the stenosis. Epidural steroid injections have been quite helpful. She has noticed a significant improvement in pain after the injections. She underwent cholecystectomy. It was found that there was some high-grade adenocarcinoma arising in the gallbladder. It was felt that the removal of the gallbladder had removed the problem. She will be followed by her physician, Dr. Lehman. She has been using hydrocodone to help control her pain. She will use a sparing/sparse amount of this medication in the past. After the surgery, she has been having more pain and discomfort in the right lower quadrant area and in her convalescence has used a bit more of the hydrocodone. This medication has been beneficial. She is taking this as prescribed. She has returned to the pain clinic with a desire to undergo an epidural injection in the near future to help quiet down the pain, which has become more problematic. ALLERGIES: PENICILLIN. CURRENT MEDICATIONS: Amitriptyline 7.5 mg 2 tablets at bedtime, Lipitor 20 mg, Flexeril 10 mg q.8 hours, Estrace 1 mg, ibuprofen 400 mg, omeprazole 20 mg, tramadol 50 mg b.i.d., donepezil 5 mg, gabapentin 100 mg t.i.d. The patient has used Lidoderm patches. Hydrocodone 5 mg 1 p.o. q.4-6 hours p.r.n. PAIN CLINIC ASSESSMENT AND PQRS: 1. The patient does have some arthritic changes in the thoracic area. Has some changes in the cervical area. The patient is not being treated for rheumatoid arthritis. 2. Height 5 feet 7 inches, weight 130 pounds, BMI is 20.1. 3. Vital Signs: Blood pressure 150/80, heart rate 86, respiratory rate 16, room air saturation is 98%. 4. Pain intensity is 7.5/10. 5. Fall history. The patient has not fallen in the last 3 months. 6. Blood thinner. The patient is not on a blood thinning medication. 7. Opioids. The patient receives her medications from one source, [place] [address] PAIN MANAGEMENT CONSULTATION Name: VERONIKA HARTLEY Room: [facility]#: [id number] Admission: 11/22/18 Attend Phys: Marisa Kraus MD Discharge: Date of : 52 Report #: [id number] 8. Risk assessment tool. 9. Hypertension. The patient is being treated for hypertension. 10. Opioids. The patient was taking the medications as prescribed. 11. Functional assessment tool. 12. Recreational drug use, the patient denies. 13. Tobacco: The patient denies use of smoking, stopped 3-1/2 years ago. Had a 45-year smoking history. 14. Alcohol. The patient denies use of alcoholic beverages. PHYSICAL EXAMINATION: GENERAL: The patient is a well-developed, well-nourished, white female. Appears her stated age. She is alert and oriented x 3. Her affect is appropriate. Speech is fluent. She and her answer appropriate questions. HEENT: Normocephalic, atraumatic. Extraocular eye muscles intact. The patient wears glasses. LUNGS: Clear to auscultation. HEART: Regular rate. ABDOMEN: Somewhat tender in the right lower quadrant area. Well-healed areas from the laparoscopic cholecystectomy. NECK: Without adenopathy or JVD. MUSCULOSKELETAL: The patient with scoliosis of the back with rightward rotation of the thoracic spine. Has a significant amount of lordosis. Upper extremity muscle strength judged to be 4+/5 for the major muscle groups in the upper extremity. Lower extremity muscle strength 5-/5 for the major muscle groups in the lower extremity. IMPRESSION: 1. Left and right low back pain. 2. History of cervical radiculopathy. 3. Lumbar radiculopathy with significant scoliosis to the right. 4. Cervical spondylosis. 5. Cervical radiculopathy. 6. Chronic intractable pain in the low back. 7. Adenocarcinoma found in her gallbladder and will be followed by Dr. Lehman. RECOMMENDATIONS: We discussed treatment options with the patient. At this juncture, her pain has reoccurred. She has noted pain that is radiating down into her back and pain and discomfort in the area of the lumbar 1/2, lumbar radicular area. We will proceed with an epidural steroid injection. These have been beneficial in the past. The patient has severe pain, which compromise her ability to engage in activity without the injections. She has not had any problems with the injections. She has been using more opioid medications to help quell her pain and discomfort because of the escalation in her pain. The patient has some perceived weakness in the L2-L3 area with sensory changes and these improve after epidural steroid injections. The [place] [address] PAIN MANAGEMENT CONSULTATION Name: VERONIKA HARTLEY Room: [facility]#: [id number] Admission: 11/22/18 Attend Phys: Marisa Kraus MD Discharge: Date of : 52 Report #: [id number] pain clinic at which time she will then undergo an epidural steroid injection in the L1-L2 area to help quell her discomfort and help her pain. By: [id number]. Gabe Kraus MD /SMITH
== END ==
LOC: M.PC 05:07
DX: M47.22 Other spondylosis with radiculopathy, cervical region (principal); M41.86 Other forms of scoliosis, lumbar region; M54.5 Low back pain; Z90.49 Acquired absence of other specified parts of digestive tract; Z88.0 Allergy status to penicillin; Z79.899 Other long term (current) drug therapy; G89.4 Chronic pain syndrome

== ENCOUNTER → 2018-11-29 | Outpatient (CLI) | payer MEDICARE, OTHER ==
--- NOTE | ~2018-11-29 | PAINCON ---
[address] [address] PAIN MANAGEMENT CONSULTATION Name: HARTLEYVERONIKAVIKTORIYA CHRISTOPHER [id number] Admission: 11/29/18 Attend Phys: Marisa Kraus MD Discharge: Date of : 52 Report #: [id number] THIS REPORT FOR: //name// CC: Chery Kraus DATE OF SERVICE: 11/29/2018 PRIMARY CARE PHYSICIAN: Dr. Chery Sutherland. CHIEF COMPLAINT: Here for injection. HISTORY: The patient is a 68-year-old female who has been followed in the pain clinic because of chronic pain. She has spinal stenosis. Has significant amount of narrowing in her back and suffers from lumbar pain because of scoliosis. She has returned today for an epidural injection to help control her pain. ALLERGIES: PENICILLIN. CURRENT MEDICATIONS: Amitriptyline 7.5 mg 2 tablets at bedtime, Lipitor 20 mg, Flexeril 10 mg q.8 hours, Estrace 1 mg, ibuprofen 400 mg, omeprazole 20 mg, tramadol 50 mg b.i.d., donepezil 5 mg, gabapentin 100 mg t.i.d. The patient uses Lidoderm patches. Hydrocodone 5/325 one p.o. q.4-6 hours. PAIN CLINIC ASSESSMENT/PQRS: 1. The patient does have some arthritic changes in the thoracic area. She has some changes in the cervical area. The patient is not being treated for rheumatoid arthritis. 2. Height 5 feet 7 inches, weight 136 pounds, BMI is 21.2. 3. Vital signs: Blood pressure 129/83, heart rate 79, respiratory rate 16, room air saturation 99%, temperature 97.9. Pain score 7/10. 4. Fall history: The patient has not fallen in the last 3 months. 5. Blood thinner. The patient is not on a blood thinning medication. 6. Opioids. The patient receives medication from one source, the pain clinic. 7. Risk assessment tool, low for opioid use. 8. Hypertension. The patient is being treated for hypertension. 9. Opioids. The patient is taking opioid medications as prescribed. 10. Functional assessment tool. 11. Recreational drug use. The patient denies. 12. Tobacco: The patient denies use of tobacco. She stopped smoking 3-1/2 years ago. Has a 45-year smoking history. 13. Alcohol. The patient denies use of alcoholic beverages. PHYSICAL EXAMINATION: GENERAL: The patient is a well-developed, well-[place] [address] PAIN MANAGEMENT CONSULTATION Name: VERONIKA HARTLEY [facility]: [facility].#: [id number] Admission: 11/29/18 Attend Phys: Marisa Kraus MD Discharge: Date of : 52 Report #: [id number] her stated age. She is alert and oriented x 3. Her affect is appropriate. Speech is fluent. She does seem to be having some pain and discomfort. Does ask some redundant questions as well as has told us that her mother had helped her learn to draw a number of years ago. HEENT: Normocephalic, atraumatic. Extraocular eye muscles intact. Sclerae nonicteric. Mucous membranes are moist. The patient is wearing glasses. LUNGS: Clear to auscultation without rhonchi. HEART: Regular rate. ABDOMEN: Somewhat pain and discomfort in lower portion of her back. She has a well-healed scar from a laparoscopic procedure. NECK: Without adenopathy or JVD. MUSCULOSKELETAL: The patient with significant scoliosis of her back with a rightward rotation of the thoracic spine. The patient has significant amount of lordosis. Upper extremity muscle strength judged to be 4+/5 for the major muscle groups in the upper extremity. Lower extremity muscle strength judged to be 5-/5 for the lower muscles in the lower extremities. IMPRESSION: 1. Left and right low back pain. 2. History of cervical radiculopathy. 3. Lumbar radiculopathy with significant scoliosis to the right. 4. Cervical spondylosis. 5. Cervical radiculopathy. 6. Chronic intractable pain in the low back. 7. 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 Lehman. RECOMMENDATIONS: We discussed treatment options with the patient. She and her have elected to undergo another epidural injection. Risks and benefits of the procedure have been explained. They include but are not limited to infection, worsening of pain, no improvement in pain, bleeding and the patient elects to proceed. PROCEDURE NOTE: The patient was taken to the procedure area. She was then assisted in getting on the examination table. Her back was sterilely prepped with a Betadine solution and allowed to dry. A skin wheal was then placed at the L1/L2 interspace. This area was then anesthetized with local anesthetic. A 17-gauge Tuohy with loss of resistance technique was used to gain access to the epidural space. There was no CSF, heme or paresthesia. Total of 80 mg Depo-Medrol, 40 mg triamcinolone and 2 mL of 0.25% bupivacaine was injected. The patient tolerated the procedure well. She remained in the Pain Clinic for an appropriate amount of time. We discussed the use of her brace. The patient does have significant amount of scoliosis. I think a scoliotic brace to reduce pain by restricting mobility of the trunk and support of the deformation of her spine could reduce her body lean and improve her condition. She has tried nonsteroidal anti-inflammatory [facility] [address] [place] [address] PAIN MANAGEMENT CONSULTATION Name: HARTLEYVERONIKAVIKTORIYA CHRISTOPHER Room: [facility]#: [id number] Admission: 11/29/18 Attend Phys: Marisa Kraus MD Discharge: Date of : 51 Report #: [id number] medications, exercise therapy, steroid injections, ice as well as cold therapy. I think that this would be a reasonable treatment at this juncture. The patient and her will decide. We would like to thank you for letting us participate in her care. We hope she continues to improve. By: 1406 [id number]. Gabe Kraus MD /SMITH
== END | disposition home or self-care (01) ==
LOC: M.PC 04:51
DX: M54.16 Radiculopathy, lumbar region (principal); G89.29 Other chronic pain; I10 Essential (primary) hypertension; C23 Malignant neoplasm of gallbladder; Z88.0 Allergy status to penicillin; Z79.899 Other long term (current) drug therapy; Z79.891 Long term (current) use of opiate analgesic; Z87.891 Personal history of nicotine dependence; Z98.890 Other specified postprocedural states

== ENCOUNTER → 2019-02-07 | Outpatient (CLI) | payer MEDICARE, OTHER ==
[~2019-02-07] MED LIST changes: +ACETAMINOPHEN500 MG PO; +B-121000 MC2 PO; -BLACK COHOSH200 MG PO; +BLACK COHOSH540 MG PO; +CELEXA PO; -CELEXA20 MG PO; +RIBOFLAVIN400 MG PO
--- NOTE | 2019-02-13 13:25 | PAINCON ---
[address] [address] PAIN MANAGEMENT CONSULTATION Name: HARTLEYVERONIKA CANDI [facility] [id number] Admission: 02/07/19 Attend Phys: Marisa Kraus MD Discharge: Date of : 52 Report #: [id number] THIS REPORT FOR: //name// CC: Chery Kraus DATE OF SERVICE: 02/07/2019 CHIEF COMPLAINT: "I had my gallbladder out and it was found to be cancerous. I had another surgery to remove the cancer." HISTORY: The patient is a 69-year-old female who has been followed in the pain clinic because of lumbar radiculopathy. She also suffers from cervical radiculopathy. The patient was found to have gallbladder stones. She had her gallbladder removed. After further examination by the pathologist, it was found that there was a cancerous malignancy in the gallbladder. She went in and had additional surgery to remove the lymph nodes remnants of the gallbladder and a portion of the liver lobe. Overall, things have gone relatively well. She recently was discharged from this hospital. She has returned today for evaluation. The patient has gleaned significant benefit from epidural steroid injections in the lumbar area. She has returned today with the hopes of undergoing an injection in the very near future. ALLERGIES: PENICILLIN. CURRENT MEDICATIONS: Lipitor 20 mg; black cohosh 200 mg supplement; Celexa 20 mg, total of 30 mg daily; vitamin B12 500 mcg; Flexeril 10 mg helps with back spasms; hydrocodone 5/325 one p.o. b.i.d./t.i.d. for pain; Namenda 10 mg, omeprazole 40 mg, tramadol 50 mg to help with pain. PAIN CLINIC ASSESSMENT/PQRS: 1. The patient has arthritic changes in her back as well as in the cervical area. She is not being treated for rheumatoid arthritis. 2. Height 5 feet 7 inches, weight 136 pounds, blood pressure 136/77, heart rate 93, respiratory rate 16, room air saturation 97%, temperature 98.1. 3. Pain intensity 10/10 with pain in the thoracic area as well as a healing area underneath the right lower quadrant. 4. Fall history: The patient has not fallen in the last 3 months. 5. Blood thinner. The patient is not on a blood thinning medication. 6. Opioids. The patient receives medication from one source the pain clinic. 7. Risk assessment tool, low for opioid use. 8. Hypertension. The patient is being treated for hypertension. 9. Opioids. The patient is taking opioids to help with her pain. 10. Functional assessment tool. 11. Recreational drug use. The patient [place] [address] PAIN MANAGEMENT CONSULTATION Name: VERONIKA HARTLEY Room: [facility]#: [id number] Admission: 02/07/19 Attend Phys: Marisa Kraus MD Discharge: Date of : 52 Report #: [id number] 12. Tobacco: The patient denies use of tobacco, stopped smoking 3-1/2 years ago, has a 45-year smoking history. 13. Alcohol. The patient denies use of alcohol. PHYSICAL EXAMINATION: GENERAL: The patient is a well-developed, well-nourished white female. Appears her stated age. She is alert and oriented x 3. Her affect is appropriate. Speech is fluent. HEENT: Normocephalic, atraumatic. Extraocular eye muscles intact. Sclerae nonicteric. Mucous membranes are moist. NECK: Without adenopathy or JVD. LUNGS: Generally clear to auscultation. HEART: Regular rate. ABDOMEN: Some tenderness in the right lower quadrant area. The patient has a well-healing scar of approximately 6 inches long underneath the right costal margin. IMPRESSION: 1. Cervical spondylosis. 2. Cervical radiculopathy. 3. Chronic intractable pain, low back area. 4. Adenocarcinoma in her gallbladder, followed by Dr. Lehman. RECOMMENDATION: We discussed treatment options with the patient. She and her would like to proceed with another epidural steroid injection. The wound appears to be healing very well. There is still a portion of absorbable suture at the inferior edge of the incision. The patient has soreness in this area. The patient has soreness radiating from her back. She has these 2 areas of pain and discomfort. We discussed treatment options with the patient. At this juncture, we will wait until she has been cleared by her surgeon to undergo an epidural injection. We discussed the possible complications of an injection at this early time. Possibility of dehiscence and slowing of wound healing has been explained to the patient and her and after 1 month, we will consider an epidural steroid injection. Hopefully, pain and discomfort in the abdominal area will have subsided, so that she would be able to lie on her abdomen in the prone position in an effort to undergo an epidural injection. The patient is continuing to have pain and discomfort. She has used very sparingly hydrocodone to help curtail the pain that she has in her back. She is still having pain postop. A script for 60 tablets of hydrocodone 5 mg has been provided. She and her will call us if pain continues to be problematic. [facility] [address] [place] [address] PAIN MANAGEMENT CONSULTATION Name: VERONIKA HARTLEY Room: [facility]#: [id number] Admission: 02/07/19 Attend Phys: Marisa Kraus MD Discharge: Date of : 51 Report #: [id number] We would like to thank you for letting us participate in her care. We hope she continues to improve. <ELECTRONICALLY SIGNED> By: Marisa Kraus MD 02/13/19 1325 1211 1544N. Gabe Kraus MD /nt
== END ==
LOC: M.PC 05:05
DX: M47.22 Other spondylosis with radiculopathy, cervical region (principal); G89.29 Other chronic pain; M54.5 Low back pain; C23 Malignant neoplasm of gallbladder

== ENCOUNTER → 2019-02-23 | Outpatient (CLI) | payer OTHER ==
--- NOTE | 2019-03-07 09:09 | PAINCON ---
[place] [address] PAIN MANAGEMENT CONSULTATION Name: HARTLEYVERONIKA TORRESN [id number] Admission: 02/23/19 Attend Phys: Marisa Kraus MD Discharge: Date of : 52 Report #: [id number] THIS REPORT FOR: //name// CC: Chery Kraus DATE OF SERVICE: 02/23/2019 CHIEF COMPLAINT: "Here for an epidural injection. My surgeon said that by the time I see you I can proceed with an injection." HISTORY: The patient is a 69-year-old female who has been followed in the pain clinic. As you may recall, she has significant problems with her back. She suffers from cervical radiculopathy as well. She has scoliosis in her back. She has returned today for an epidural injection. She did have cholecystectomy. A cancerous growth was found on the gallbladder. She underwent additional surgery for resection. Overall, things are going well and she has returned to the pain clinic for an injection. Her surgeon feels that she has healed well enough that this should not be a problem with the steroid injection. ALLERGIES: PENICILLIN. CURRENT MEDICATIONS: Lipitor 20 mg; black cohosh 200 mg supplement; Celexa 20 mg, total of 30 mg daily; vitamin B12 500 mcg; Flexeril 10 mg for back spasms; hydrocodone 5/325 one p.o. b.i.d./t.i.d. for pain; Namenda 10 mg; omeprazole 40 mg; tramadol 50 mg. PAIN CLINIC ASSESSMENT AND PQRS: 1. The patient has back pain as well as cervical pain. She is not being treated for rheumatoid arthritis. 2. Height 5 feet 7 inches. Weight 133 pounds. BMI is 20.9. 3. Vital signs: Blood pressure 137/73, heart rate 79, respiratory rate 16, room air saturation 96%, temperature 98.2. 4. Pain intensity is 7/10. 5. Fall history: The patient has not fallen in the last 3 months. 6. Blood thinner: The patient is not on a blood thinning medication. 7. Opioids: The patient continues to receive medications from one source, the pain clinic. 8. Risk assessment tool: Low for opioid use. 9. Functional assessment tool: The patient is being treated for hypertension. 10. Opioids: The patient is taking medications on an occasional basis. 11. Recreational drug use: The patient denies. 12. Tobacco: The patient denies use of tobacco, stopped smoking 3-1/2 years ago, and has 45 year smoking history. 13. Alcohol: The [place] [address] PAIN MANAGEMENT CONSULTATION Name: VERONIKA AHRTLEY Room: [facility]#: [id number] Admission: 02/23/19 Attend Phys: Marisa Kraus MD Discharge: Date of : 52 Report #: [id number] PHYSICAL EXAMINATION: GENERAL: The patient is a well-developed, well-nourished white female. Appears her stated age. She is accompanied by her . She appears to be cognizant of person, place and condition. HEENT: Normocephalic, atraumatic. Extraocular eye muscles intact. The patient is wearing glasses. NECK: Without adenopathy or JVD. LUNGS: Clear to auscultation. HEART: Regular rate. ABDOMEN: Nontender. The patient has well-healed scar under the right costal area. IMPRESSION: 1. Lumbar radiculopathy. 2. Cervical radiculopathy. 3. Chronic intractable pain, low back area. 4. Adenocarcinoma of the gallbladder resected followed by Dr. Lehman. RECOMMENDATIONS: We discussed treatment options with the patient. Risks and benefits of an epidural steroid injection were again discussed with the patient and her . They have found that these have been quite beneficial. There were no complications in the past. She would like to proceed with an injection. PROCEDURE NOTE: The patient was taken to the procedure area. She was then assisted in getting on the examination table. Her back was sterilely prepped with a Betadine solution. 0.25% bupivacaine was infiltrated. A 17-gauge Tuohy with loss of resistance technique at the L1-L2 interspace was undertaken. The patient tolerated the procedure well. She was then taken to the recovery room where she remained for an appropriate amount of time. She will follow up in the future as needed. We would like to thank you for letting us participate in her care. We hope she continues to improve. <ELECTRONICALLY SIGNED> By: Marisa Kraus MD 03/07/19 0909 2229 2357N. Gabe Kraus MD /kayce
== END | disposition home or self-care (01) ==
LOC: M.PC 05:06
DX: M54.16 Radiculopathy, lumbar region (principal); G89.29 Other chronic pain; M54.12 Radiculopathy, cervical region; M54.5 Low back pain; I10 Essential (primary) hypertension; Z87.19 Personal history of other diseases of the digestive system; Z85.09 Personal history of malignant neoplasm of other digestive organs; Z88.0 Allergy status to penicillin; Z79.899 Other long term (current) drug therapy; Z98.890 Other specified postprocedural states; Z90.49 Acquired absence of other specified parts of digestive tract; Z87.891 Personal history of nicotine dependence

== ENCOUNTER → 2019-04-20 | Outpatient (CLI) | payer MEDICARE, OTHER ==
--- NOTE | ~2019-04-20 | PAINCON ---
[address] [address] PAIN MANAGEMENT CONSULTATION Name: NAEEMVERONIKA TORRESN [facility]: [facility]#: [id number] Admission: 04/20/19 Attend Phys: Marisa Kraus MD Discharge: Date of : 52 Report #: [id number] THIS REPORT FOR: //name// CC: Chery Kraus DATE OF SERVICE: 04/20/2019 CHIEF COMPLAINT: The back pain has started to reoccur and I would like to have another injection. HISTORY: The patient is a 69-year-old female who has been followed in the pain clinic. As you may recall, she has had some problems with her back. A few months ago, she had problems with her gallbladder. It was found to be cancerous. The cancer has been removed. Overall, things have been going reasonably well. She underwent an epidural steroid injection in the lumbar area at the last visit that has proved quite beneficial. She has noticed increasing pain at this juncture. As you may recall, she is having more problems with her memory. Her states that she is having more pain. She does not get out of bed on the days when her pain is quite problematic. It appears to be bothering her more. She has stayed in bed about 3 days in a at this juncture, because of the pain. Rates her pain between a 2-3 in the early portion of the day, it can rise to the level of a 7-8. ALLERGIES: PENICILLIN. CURRENT MEDICATIONS: Lipitor 20 mg, black cohosh 200 mg supplement, Celexa 20 mg, total of 30 mg daily, vitamin B12 500 mcg, Flexeril 10 mg for back spasms, hydrocodone 5/325 one p.o. b.i.d. to t.i.d. p.r.n. pain. Namenda 10 mg, omeprazole 40 mg, tramadol 50 mg to help with the pain. PAIN CLINIC ASSESSMENT AND PQRS: 1. The patient has some arthritic changes in her back as well as the cervical area. She is not being treated for rheumatoid arthritis. 2. Height 5 feet 7 inches, weight 137 pounds, BMI is 21.9. 3. Vital signs: Blood pressure 125/68, heart rate 74, respiratory rate 16, room air saturation 96%, temperature 97.7. 4. Pain intensity 2-3/10 at this point. Took medications prior to coming to the Pain Clinic. 5. Fall history: The patient has not fallen in the last 3 months. 6. Blood thinner. The patient is not on a blood thinning medication. 7. Opioids. The patient continues to take medications as provided by the pain clinic. 8. Risk assessment tool, low for opioid use. 9. Hypertension. The patient is not [place] [address] PAIN MANAGEMENT CONSULTATION Name: VERONIKA HARTLEY [facility] [id number] Admission: 04/20/19 Attend Phys: Marisa Kraus MD Discharge: Date of : 52 Report #: [id number] 10. Opioids. The patient denies use of illegal drugs. 11. Functional assessment tool, low for opioid use. 12. Tobacco: The patient denies use of tobacco, stopped smoking 3-1/2 years ago, had a 45-year smoking history. 13. Alcohol. The patient denies use of alcoholic beverages. PHYSICAL EXAMINATION: GENERAL: The patient is a well-developed, well-nourished white female. Appears her stated age. She is alert and oriented x 3. She is accompanied by her who helps provide her history. NECK: Without adenopathy. HEENT: Normocephalic, atraumatic. Extraocular eye muscles intact. The patient is wearing glasses. Hearing within normal limits. LUNGS: Generally clear to auscultation. HEART: Regular rate. ABDOMEN: Nontender. EXTREMITIES: Lower extremity muscle strength judged to be 5-/5 for the major muscle groups of lower extremity. The patient complains of pain and discomfort that is radiating down in the L2-L3 dermatomal distribution. IMPRESSION: 1. Cervical spondylosis. 2. Cervical radiculopathy. 3. Chronic intractable pain, low back area. 4. Adenocarcinoma in the gallbladder, followed by Dr. Lehman. The patient to have a CT in the near future. RECOMMENDATIONS: We discussed treatment options with the patient. The patient is having pain, which has reoccurred. She has found good relief with epidural steroid injection in the lumbar area at approximately L1-L2. She has returned today with the hope of undergoing another injection. She and her agree that this is helpful. Again, she is having more pain. She has stayed in bed up to 3 days because of the increasing pain and discomfort associated with this. Her tries to minimize the amount of opioids she gets. States that she sometimes starts to when she gets too much of the opioid medication. A script for hydrocodone was given in the past. He states that she still has about 30 tablets and does not need hydrocodone at this juncture. She will return to the Pain Clinic, at which time she will then undergo an epidural steroid injection. We would like to thank you for letting us participate in her care. We hope she [address] [address] PAIN MANAGEMENT CONSULTATION Name: VERONIKA HARTLEY Room: [facility]#: [id number] Admission: 04/20/19 Attend Phys: Marisa Kraus MD Discharge: Date of : 52 Report #: [id number] continues to improve. We will proceed with epidural steroid injection at the L1-L2 interface, which has been most helpful in the past. By: [id number] 2135N. Gabe Kraus MD /nt
== END ==
LOC: M.PC 11:50
DX: M47.22 Other spondylosis with radiculopathy, cervical region (principal); G89.4 Chronic pain syndrome

== ENCOUNTER → 2019-04-27 | Outpatient (CLI) | payer MEDICARE, OTHER ==
--- NOTE | ~2019-04-27 | PAINCON ---
[address] [address] PAIN MANAGEMENT CONSULTATION Name: HARTLEYVERONIKA CANDI Room: [facility]#: [id number] Admission: 04/27/19 Attend Phys: Marisa Kraus MD Discharge: Date of : 52 Report #: [id number] THIS REPORT FOR: //name// CC: Chery Kraus DATE OF SERVICE: 04/27/2019 CHIEF COMPLAINT: Here for epidural injection. HISTORY: The patient is a 69-year-old female who has been followed in the pain clinic because of chronic thoracic pain. She has problems with scoliosis. She has undergone epidural steroid injections in thoracic area and finds that these are quite helpful for a number of months. She has returned today with the hope of undergoing an injection. She and her frequently go to [place]. They hope to meet other family members there. As you may recall, she is having more problems with her memory. Overall, things are going reasonably well. She would like to go to [place] where she and her are able to find du stones. They then make items from them. ALLERGIES: PENICILLIN. CURRENT MEDICATIONS: Lipitor 20 mg; black cohosh 200 mg supplement; Celexa 20 mg, total of 30 mg daily; vitamin B12 at 1000 mcg; Flexeril 10 mg muscle spasms; hydrocodone 5/325 rarely; Namenda 10 mg; omeprazole 40 mg before meals; riboflavin 400 mg and tramadol 50 mg b.i.d. p.r.n. PAIN CLINIC ASSESSMENT/PQRS: 1. The patient has some arthritic changes in her back as well as in the cervical area. She is not being treated for rheumatoid arthritis. 2. Height 5 feet 7 inches, weight 130 pounds, BMI is 22.0. 3. Vital signs: Blood pressure 142/77, heart rate 68, respiratory rate 18, room air saturation 98% and temperature was 98 degrees. Pain 6-10/12. 4. Fall history: The patient has not fallen in the last 3 months. 5. Blood thinner. The patient is not on a blood thinning medication. 6. Opioids. The patient takes medication sparingly. 7. Risk assessment tool, low for opioid use. 8. Hypertension. The patient is not being treated for hypertension. 9. Opioids. The patient denies use of illegal opioid medications. 10. Functional assessment tool, low for opioids. 11. Tobacco: The patient denies use of tobacco, stopped smoking 3-1/2 years ago. Smoked for 45 years. 12. Alcohol. The patient denies use of alcoholic beverages. PHYSICAL EXAMINATION: [place] [address] PAIN MANAGEMENT CONSULTATION Name: VERONIKA HARTLEY Room: [facility].#: [id number] Admission: 04/27/19 Attend Phys: Marisa Kraus MD Discharge: Date of : 52 Report #: [id number] GENERAL: The patient is a well-developed, well-nourished white female. Appears her stated age. She is alert and oriented to self and place. Some of her history/medical is provided by her . NECK: Without adenopathy. HEENT: Normocephalic, atraumatic. Extraocular eye muscles intact. The patient is not complaining of significant neck pain or discomfort today. LUNGS: Clear to auscultation. HEART: Regular rate. ABDOMEN: Nontender. EXTREMITIES: Upper extremity muscle strength judged to be 5-/5 for the major muscle groups in the upper extremity. The patient has scoliosis in the lumbar area. Has pain that radiates down the L2-L3 dermatomal distribution. IMPRESSION: 1. Cervical spondylosis. 2. Cervical radiculopathy. 3. Chronic intractable pain, low back area in the L2-L3 area. 4. 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 RECOMMENDATIONS: We discussed treatment options. Risks and benefits of an epidural steroid injection were again discussed. Possible complications of the procedure, which could include but are not limited to infection, worsening pain, no improvement in pain, trauma and nerve damage were discussed and the patient elects to proceed. PROCEDURE NOTE: The patient was taken to the procedure area. She was then assisted in getting on the examination table. Her back was sterilely prepped with a Betadine solution. A 0.25% bupivacaine was injected into the area to anesthetize it. A total of 80 mg Depo-Medrol, 40 mg triamcinolone and 2 mL of 0.25% bupivacaine were injected. The patient tolerated the procedure well. There were no complications. She will follow up in the future as needed. We would like to thank you for letting us participate in her care. The procedure was performed at the L1-L2 area today. By: [id number]. Gabe Kraus MD /kayce
== END | disposition home or self-care (01) ==
LOC: M.PC 04:08
DX: M54.5 Low back pain (principal); G89.29 Other chronic pain; M47.22 Other spondylosis with radiculopathy, cervical region; Z98.890 Other specified postprocedural states; Z90.49 Acquired absence of other specified parts of digestive tract; Z88.0 Allergy status to penicillin; Z79.899 Other long term (current) drug therapy

== ENCOUNTER → 2019-08-22 | Outpatient (CLI) | payer MEDICARE, OTHER | LOC: M.PC 05:00 | DX: M54.16 Radiculopathy, lumbar region (principal); G89.29 Other chronic pain; Z98.890 Other specified postprocedural states; Z79.899 Other long term (current) drug therapy ==

== ENCOUNTER → 2019-10-31 | Outpatient (CLI) | payer MEDICARE, OTHER ==
--- NOTE | 2019-11-09 13:41 | PAINCON ---
[address] [address] PAIN MANAGEMENT CONSULTATION Name: VERONIKA HARTLEY Room: [facility]#: [id number] Admission: 10/31/19 Attend Phys: Marisa Kraus MD Discharge: Date of : 52 Report #: [id number] THIS REPORT FOR: //name// cc: Chery Sutherland MD, Ghazal A. MD ~ THIS REPORT FOR: //name// CC: Chery Kraus DATE OF SERVICE: 10/31/2019 CHIEF COMPLAINT: Here for another thoracic epidural injection to help control the pain. HISTORY: The patient is a 69-year-old female who has been followed in the pain clinic because of chronic pain in the back area. She suffers from scoliosis. She has pain, which is problematic in the thoracic and lumbar area. She has undergone epidural steroid injections in the lower epidural area and finds that these are beneficial. She does travel between [place] and [place]. She has returned from her vacation in [place] and would like to proceed with an epidural steroid injection today. Pain has been worse for the last few days. She has not been getting out of bed. She does have dementia. It is somewhat more difficult to assess her level of pain/discomfort. She generally stays in bed when she is uncomfortable. ALLERGIES: PENICILLIN. CURRENT MEDICATIONS: Lipitor 20 mg, black cohosh 200 mg supplement, Celexa 20 mg, total of 30 mg daily, vitamin B12 1000 mcg, Flexeril 10 mg p.r.n. muscle spasms, hydrocodone 5/325 on occasion, Namenda 10 mg, omeprazole 40 mg, riboflavin 400 mg, tramadol 50 mg b.i.d. PAIN CLINIC ASSESSMENT AND PQRS: 1. The patient has some arthritic changes in her back as well as in the cervical area. She is not being treated for rheumatoid arthritis. 2. Height 5 feet 7 inches, weight 145 pounds, BMI is 22.7. 3. Vital Signs: Blood pressure 133/72, heart rate 71, respiratory rate 16, room air saturation 96%, temperature 97.6. 4. Pain intensity, 5/10. 5. Fall history. The patient has not fallen in the last 3 months. 6. Blood thinner. The patient is not on a blood thinning medication. 7. Risk assessment tool, low for opioid use. 8. Hypertension. The patient is not being treated for hypertension. 9. Opioids. The patient denies use of illegal opioids. 10. Functional assessment tool, [place] [address] PAIN MANAGEMENT CONSULTATION Name: VERONIKA HARTLEY Room: [facility]#: [id number] Admission: 10/31/19 Attend Phys: Marisa Kraus MD Discharge: Date of : 52 Report #: [id number] 11. Tobacco. The patient denies use of tobacco. She stopped smoking 3-1/2 years ago, had a 45-year smoking history. 12. Alcohol. The patient denies use of alcoholic beverages. PHYSICAL EXAMINATION: GENERAL: The patient is a well-developed, well-nourished, white female. Appears her stated age. She is alert. She is somewhat oriented to person and place as well as time. Her medical history is provided by the patient as well as her . NECK: Without adenopathy. The patient is wearing a mask. HEENT: Normocephalic, atraumatic. Extraocular eye muscles intact. Sclerae nonicteric. Mucous membranes are moist. The patient is wearing glasses. LUNGS: Clear to auscultation. HEART: Regular rate. ABDOMEN: Nontender. EXTREMITIES: Upper extremity muscle strength judged to be 5/5 for the major muscle groups in the upper extremity. The patient has pain and discomfort in the lower portion of her back with pain in the L2-L3 dermatomal distribution. IMPRESSION: 1. Lumbar radiculopathy in the L2-L3 dermatomal distribution. 2. Cervical spondylosis. 3. Cervical radicular history. 4. Chronic intractable pain from low back area in the L2-L3 area of the lumbar spine. 5. Adenocarcinoma of the bladder, removed and stable at this juncture. RECOMMENDATIONS: We discussed treatment options with the patient as well as with her . The risks and benefits of the procedure were discussed. They include but are not limited to infection, worsening of pain, no improvement in pain, nerve damage, spinal headache. We also explained that the COVID-19 virus is problematic Should the patient become infected, she may have a more difficult time with the virus because steroids decrease one's immunity. She and he elect to proceed. PROCEDURE NOTE: The patient was taken to the procedure area. She was then assisted in getting on the examination table. A pillow was placed under the abdomen to bolster and improve positioning. Her back was sterilely prepped with Betadine solution and allowed to dry. A 0.25% bupivacaine was infiltrated at the L2-L3 interspace. There was no CSF, heme or paresthesia. A total of 80 mg Depo-Medrol, 40 mg triamcinolone and 2 mL of 0.25% bupivacaine was injected. The patient tolerated the procedure well. She remained in the pain clinic for an appropriate amount of time. Total of approximately 39 seconds fluoroscopy time was used. She was then taken to the procedure room where she remained for an appropriate amount of time. Her pain score was 2 at the time of discharge. She will follow [place] [address] PAIN MANAGEMENT CONSULTATION Name: VERONIKA HARTLEY Room: [facility]#: [id number] Admission: 10/31/19 Attend Phys: Marisa Kraus MD Discharge: Date of : 52 Report #: [id number] We would like to thank you for letting us participate in her care. We hope she continues to improve. <ELECTRONICALLY SIGNED> By: Marisa Kraus MD 11/09/19 1341 2230 0010Marisa Kraus MD /SMITH
== END | disposition home or self-care (01) ==
LOC: M.PC 05:05
PROVIDERS: ATTEND Anesthesiology Pain Medicine
DX: M54.16 Radiculopathy, lumbar region (principal); G89.29 Other chronic pain; M47.892 Other spondylosis, cervical region; Z98.890 Other specified postprocedural states; Z79.899 Other long term (current) drug therapy; Z88.0 Allergy status to penicillin; Z85.51 Personal history of malignant neoplasm of bladder

== ENCOUNTER → 2020-01-23 | Outpatient (CLI) | payer OTHER ==
--- NOTE | 2020-01-26 08:24 | PAINCON ---
[address] [address] PAIN MANAGEMENT CONSULTATION Name: VERONIKA HARTLEY Room: [facility]#: [id number] Admission: 01/23/20 Attend Phys: Marisa Kraus MD Discharge: Date of : 52 Report #: [id number] THIS REPORT FOR: //name// cc: Chery Sutherland MD, Ghazal A. MD ~ THIS REPORT FOR: //name// CC: Chery Kraus DATE OF SERVICE: 01/23/2020 CHIEF COMPLAINT: Return of thoracic pain and low back pain. HISTORY: The patient is a 70-year-old female who has been followed in the pain clinic because of chronic back pain. The patient suffers from significant scoliosis. She has had some thoracic and lumbar discomfort. She finds that her pain today is in the usual area involving the low back area. She and her continue to travel between [place] and [place]. They like living in [place]. They have been there for about the last 3 months. They returned today for another epidural injection. As you may recall, she suffers from dementia. She rates her pain today as 4/10. She was hospitalized in [place]. She had abdominal pain. She was vomiting. At this juncture, things have settled down. They were contacted after leaving the hospital that she may have been in contact with an individual with COVID-19. Sixteen days have passed and she has had no symptomatology. She does feel that the hydrocodone is helpful. At this juncture, she sometimes requires more than 2 tablets per day. She has some pain and discomfort in her neck in the posterior portion. Some decreased range of motion is noted. She has pain that sometimes improves after the epidural steroid injection. This last month was somewhat difficult. ALLERGIES: PENICILLIN. CURRENT MEDICATIONS: 1. Lipitor 20 mg. 2. Black cohosh 20 mg. 3. Celexa 20 mg, a total of 30 mg daily. 4. Vitamin B12 1000 mcg. 5. Flexeril 10 mg p.r.n. muscle spasms. 6. Hydrocodone 5/325 on occasion. 7. Namenda 10 mg. 8. Omeprazole 40 mg. 9. Riboflavin 400 mg. 10. Tramadol 50 mg b.i.d. PAIN CLINIC ASSESSMENT AND PQRS: [place] [address] PAIN MANAGEMENT CONSULTATION Name: VERONIKA HARTLEY Room: [facility]#: [id number] Admission: 01/23/20 Attend Phys: Marisa Kraus MD Discharge: Date of : 52 Report #: [id number] 1. The patient does have some arthritic changes in her back as well as in the cervical area. She is not being treated for rheumatoid arthritis. 2. Height 5 feet 7 inches, weight 140 pounds, BMI is 22.1. 3. Vital signs: Blood pressure 148/100, heart rate 68, respiratory rate 16, room air saturation 97.2. 4. Pain intensity: 7/10. 5. Fall history: The patient has not fallen since we saw her last. 6. Blood thinner: The patient is not on a blood thinning medication. 7. Hypertension: The patient is not being treated for hypertension. 8. Opioids greater than 6 weeks: The patient received medication from the pain clinic. 9. Risk assessment tool: Low for opioid use. 10. Functional assessment tool: Reviewed. 11. Recreational drug use: The patient denies. 12. Tobacco: The patient denies. 13. Alcohol: The patient does not smoke and does not drink. PHYSICAL EXAMINATION: GENERAL: The patient is a well-developed, well-nourished white female. Appears her stated age. She is alert and oriented x 3. She has a facial covering in place. She is accompanied by her . NECK: Without adenopathy. The patient does complain of some pain on the posterior portion of her neck near the C7, C6 area. HEENT: Normocephalic, atraumatic. Extraocular eye muscles are intact. Sclerae nonicteric. LUNGS: Clear to auscultation. HEART: Regular rate. ABDOMEN: Nontender. MUSCULOSKELETAL: Upper extremity muscle strength judged to be 5-/5 for the major muscle groups in the upper extremity. The patient has some pain and discomfort in the lower portion of her back and pain in the L2-L3 dermatomal distribution. IMPRESSION: 1. Lumbar radiculopathy at the L2-L3 dermatomal distribution. 2. Cervical spondylosis, cervical radiculopathy history. 3. Chronic intractable pain, low back area in the L2-L3 area, lumbar spine. 4. Adenocarcinoma of the bladder, removed and stable at this juncture. RECOMMENDATIONS: We discussed treatment options with the patient and her . At this juncture, we will proceed with an epidural steroid injection. Risks and benefits of the procedure were discussed. They include but are not limited to infection, worsening of pain, no improvement in pain, nerve damage, bleeding, and the patient and her elected to proceed. PROCEDURE NOTE: The patient was taken to the [place] [address] PAIN MANAGEMENT CONSULTATION Name: VERONIKA HARTLEY Room: [facility]#: [id number] Admission: 01/23/20 Attend Phys: Marisa Kraus MD Discharge: Date of : 52 Report #: [id number] assisted in getting on the examination table. Her back was sterilely prepped with a Betadine solution. This was allowed to dry. A 25-gauge needle was then used to anesthetize the area. A total of 80 mg Depo-Medrol, 40 mg triamcinolone, and 2 mL of 0.25% bupivacaine was injected. The patient tolerated the procedure well. A total of 30 seconds fluoroscopy time was used. The patient remained in the pain clinic for an appropriate amount of time. She will follow up in the future as needed. Her states that she has been having more pain and more often. We will have the patient try hydrocodone 5 mg 1 p.o. up to q.6 hours p.r.n. for pain. The patient will also continue with tramadol 50 mg 1 p.o. t.i.d. to help with her pain. We would like to thank you for letting us participate in her care. We hope she continues to improve. <ELECTRONICALLY SIGNED> By: Marisa Kraus MD 01/26/20 0824 1439 1703N. Gabe Kraus MD /nt
== END | disposition home or self-care (01) ==
LOC: M.PC 09:37
PROVIDERS: ATTEND Anesthesiology Pain Medicine
DX: M54.16 Radiculopathy, lumbar region (principal); M47.22 Other spondylosis with radiculopathy, cervical region; G89.29 Other chronic pain; Z88.0 Allergy status to penicillin; Z79.899 Other long term (current) drug therapy

== ENCOUNTER → 2020-04-16 | Outpatient (CLI) | payer MEDICARE, OTHER | END | disposition home or self-care (01) | LOC: M.PC 10:07 | PROVIDERS: ATTEND Anesthesiology Pain Medicine | DX: M47.26 Other spondylosis with radiculopathy, lumbar region (principal); G89.29 Other chronic pain; M54.5 Low back pain; F03.90 Unspecified dementia, unspecified severity, without behavioral disturbance, psychotic disturbance, mood disturbance, and anxiety; K21.9 Gastro-esophageal reflux disease without esophagitis; E78.00 Pure hypercholesterolemia, unspecified; M41.9 Scoliosis, unspecified; G56.00 Carpal tunnel syndrome, unspecified upper limb; K44.9 Diaphragmatic hernia without obstruction or gangrene; Z87.891 Personal history of nicotine dependence; Z85.09 Personal history of malignant neoplasm of other digestive organs; Z88.6 Allergy status to analgesic agent; Z88.0 Allergy status to penicillin ==

== ENCOUNTER → 2020-06-20 | Outpatient (CLI) | payer OTHER ==
[~2020-06-20] MED LIST changes: +HYDROCODONE-AP1 EA11 PO
== END | disposition home or self-care (01) ==
LOC: M.PC 09:29
PROVIDERS: ATTEND Anesthesiology Pain Medicine
DX: M54.16 Radiculopathy, lumbar region (principal); M54.5 Low back pain; G89.29 Other chronic pain; M47.892 Other spondylosis, cervical region; E78.00 Pure hypercholesterolemia, unspecified; K21.9 Gastro-esophageal reflux disease without esophagitis; F03.90 Unspecified dementia, unspecified severity, without behavioral disturbance, psychotic disturbance, mood disturbance, and anxiety; Z98.890 Other specified postprocedural states; Z90.49 Acquired absence of other specified parts of digestive tract; Z79.899 Other long term (current) drug therapy; Z90.710 Acquired absence of both cervix and uterus

== ENCOUNTER → 2020-08-20 | Outpatient (CLI) | payer OTHER | LOC: M.PC 05:39 | PROVIDERS: ATTEND Anesthesiology Pain Medicine | DX: M47.22 Other spondylosis with radiculopathy, cervical region (principal); M54.5 Low back pain; C23 Malignant neoplasm of gallbladder; G89.29 Other chronic pain ==

== ENCOUNTER → 2020-08-27 | Outpatient (CLI) | payer OTHER | END | disposition home or self-care (01) | LOC: M.PC 08:52 | PROVIDERS: ATTEND Anesthesiology Pain Medicine | DX: M54.16 Radiculopathy, lumbar region (principal); G89.29 Other chronic pain; M54.12 Radiculopathy, cervical region; E78.00 Pure hypercholesterolemia, unspecified; F03.90 Unspecified dementia, unspecified severity, without behavioral disturbance, psychotic disturbance, mood disturbance, and anxiety; K21.9 Gastro-esophageal reflux disease without esophagitis; Z98.890 Other specified postprocedural states; Z87.891 Personal history of nicotine dependence; Z79.899 Other long term (current) drug therapy; Z90.710 Acquired absence of both cervix and uterus; Z88.0 Allergy status to penicillin; Z88.8 Allergy status to other drugs, medicaments and biological substances ==

== ENCOUNTER → 2020-10-10 | Outpatient (CLI) | payer OTHER | LOC: M.PC 05:49 | PROVIDERS: ATTEND Anesthesiology Pain Medicine | DX: G89.29 Other chronic pain (principal); M47.22 Other spondylosis with radiculopathy, cervical region; M41.9 Scoliosis, unspecified; Z88.0 Allergy status to penicillin; Z88.8 Allergy status to other drugs, medicaments and biological substances; Z79.891 Long term (current) use of opiate analgesic; Z79.899 Other long term (current) drug therapy; Z90.710 Acquired absence of both cervix and uterus; Z87.891 Personal history of nicotine dependence; Z68.22 Body mass index [BMI] 22.0-22.9, adult; Z85.09 Personal history of malignant neoplasm of other digestive organs ==

== ENCOUNTER → 2020-10-24 | Outpatient (CLI) | payer OTHER | END | disposition home or self-care (01) | LOC: M.PC 10-17 09:10 | PROVIDERS: ATTEND Anesthesiology Pain Medicine | DX: M54.16 Radiculopathy, lumbar region (principal); M54.12 Radiculopathy, cervical region; M54.5 Low back pain; G89.29 Other chronic pain; E78.00 Pure hypercholesterolemia, unspecified; K21.9 Gastro-esophageal reflux disease without esophagitis; F03.90 Unspecified dementia, unspecified severity, without behavioral disturbance, psychotic disturbance, mood disturbance, and anxiety; Z98.890 Other specified postprocedural states; Z79.899 Other long term (current) drug therapy; Z90.49 Acquired absence of other specified parts of digestive tract; Z90.710 Acquired absence of both cervix and uterus; Z88.0 Allergy status to penicillin; Z88.8 Allergy status to other drugs, medicaments and biological substances ==

== ENCOUNTER 2021-01-01 22:18 | Emergency (ER) | payer OTHER ==
[~2021-01-01] VITALS: Ht 172.7 cm; Wt 57.1 kg
[2021-01-01 22:59] LABS: ABSOLUTE BASOPHILS 0.1 thou/uL (0.0-0.2); ABSOLUTE LYMPHOCYTES 1.9 thou/uL (0.8-5.3); ABSOLUTE MONOCYTES 0.6 thou/uL (0.0-1.2); ABSOLUTE NEUTROPHILS 9.7 thou/uL (1.6-8.1); BASOPHILS 0.4 %; EOSINOPHILS 0.1 %; HEMATOCRIT 40.5 % (37.0-47.0); HEMOGLOBIN 13.6 gm/dL (12.0-15.0); LYMPHOCYTES 15.3 %; MCH 33.2 pg (26.0-34.0); MCHC 33.6 g/dL (28.0-37.0); MCV 98.6 fL (80.0-100.0); MONOCYTES 4.8 %; MPV 7.8 fl. (7.2-11.1); NUCLEATED RBCS 0 /100WBC; PLATELET COUNT* 271 thou/uL (150-400); POLYS 79.4 %; RBC 4.11 mil/uL (4.20-5.00); WBC 12.2 thou/uL (4.0-11.0)
[2021-01-01 23:12] LABS: CALCIUM 9.2 mg/dL (8.5-10.1); CREATININE 1.1 mg/dL (0.6-1.3)
[2021-01-01 23:18] LABS: ALBUMIN 4.1 g/dL (3.4-5.0); TOTAL BILIRUBIN 0.5 mg/dL (<0.1-1.0); TOTAL PROTEIN 6.8 g/dL (6.4-8.2)
[2021-01-02] MEDS ORDERED: PROMS25 WY RECTAL (03:07)
[2021-01-02] MEDS ORDERED: DICYCLOMINE HCL20 MG PO (03:07)
[2021-01-02 04:00] VITALS: BP 173/77
--- NOTE | 2021-01-02 14:20 | EKG ---
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1950 Requested By: Katya Marquez Order Number: [id number] MD: Hung Landry Measurements Intervals [place] Rate: 74 P: 84 VT: 146 QRS: 68 QRSD: 102 T: 34 QT: 460 QTc: 511 Interpretive Statements Sinus rhythm Borderline low voltage, extremity leads Abnormal R-wave progression, early transition Minimal ST depression, anterolateral leads Prolonged QT interval Compared to ECG 11/07/2018 12:11:14 Prolonged QT interval now present Short VT interval no longer present ST (T wave) deviation still present Electronically Signed On 01-02-2021 14:20:15 CDT by Hung Landry [email or web address] <ELECTRONICALLY SIGNED> By: Hung Landry MD, [facility] 01/02/21 1420 0002 0002 Hung Landry MD, [facility] /EPI
== END 2021-01-02 04:00 | disposition home or self-care (01) ==
LOC: M.ERS 22:18
PROVIDERS: Personal Emergency Response Attendant
DX: R10.13 Epigastric pain (principal); R10.11 Right upper quadrant pain; E87.6 Hypokalemia; R11.2 Nausea with vomiting, unspecified; F03.90 Unspecified dementia, unspecified severity, without behavioral disturbance, psychotic disturbance, mood disturbance, and anxiety; E78.00 Pure hypercholesterolemia, unspecified; Z90.711 Acquired absence of uterus with remaining cervical stump; Z79.899 Other long term (current) drug therapy; Z88.8 Allergy status to other drugs, medicaments and biological substances; Z88.0 Allergy status to penicillin

== ENCOUNTER → 2021-01-09 | Outpatient (CLI) | payer OTHER ==
[~2021-01-09] MED LIST changes: +DICYCLOMINE HCL20 MG PO; +PROMS25 WY RECTAL
== END ==
LOC: M.PC 05:46
PROVIDERS: ATTEND Anesthesiology Pain Medicine
DX: G89.29 Other chronic pain (principal); M54.16 Radiculopathy, lumbar region; M54.12 Radiculopathy, cervical region; F17.200 Nicotine dependence, unspecified, uncomplicated; Z79.899 Other long term (current) drug therapy; Z88.0 Allergy status to penicillin; Z88.8 Allergy status to other drugs, medicaments and biological substances; Z90.710 Acquired absence of both cervix and uterus; Z98.49 Cataract extraction status, unspecified eye

== ENCOUNTER → 2021-01-16 | Outpatient (CLI) | payer OTHER | END | disposition home or self-care (01) | LOC: M.PC 11:01 | PROVIDERS: ATTEND Anesthesiology Pain Medicine | DX: M54.16 Radiculopathy, lumbar region (principal); G89.29 Other chronic pain; E78.00 Pure hypercholesterolemia, unspecified; K21.9 Gastro-esophageal reflux disease without esophagitis; Z98.890 Other specified postprocedural states; Z79.899 Other long term (current) drug therapy; Z90.710 Acquired absence of both cervix and uterus; Z87.891 Personal history of nicotine dependence; Z98.41 Cataract extraction status, right eye; Z98.42 Cataract extraction status, left eye; Z88.0 Allergy status to penicillin; Z88.8 Allergy status to other drugs, medicaments and biological substances ==